=== PATIENT | female | born 1950 | race Caucasian/White ===

== ENCOUNTER 2019-12-09 14:41 | Outpatient (CLI) | payer MEDICARE, SELFPAY ==
--- NOTE | ~2019-12-09 | US_ITS ---
EXAMINATION: US art doppler w press LE BI DATE: 12/09/2019 15:28 CDT INDICATION: Peripheral vascular disease. Pain in the feet. TECHNIQUE: Segmental pressures and plethysmographic and Doppler waveforms of the brachial and lower e xtremity arteries were obtained. COMPARISON: None. FINDINGS: Right and left brachial artery pressures of 124 mm Hg and 116 mm Hg, respectively, are concordant (no rmal difference <= 30 mmHg). The right high-thigh pressure index is 1.19 (normal > 1.2). The right ankle-brachial index (MAURICE) is 1 .05 (normal >= 0.9-1.0). The right great toe-brachial index (TBI) is 0.88 (normal >= 0.60). The right lower extremity segmental pressure gradients are normal (normal gradients <= 20-30 mmHg between raeann cent levels on the same leg or the same levels on the two legs). Arterial Doppler waveforms are bipha sic . The left high-thigh pressure index is 1.06. The left MAURICE is 1.1. The left TBI is 1.02. The left lower extremity segmental pressure gradients are normal. Arterial Doppler waveforms are biphasic. IMPRESSION: 1. Normal bilateral ankle and toe brachial indices. Reviewed, dictated and finalized at location A.
== END 2019-12-09 14:42 | disposition home or self-care (01) ==
LOC: ANHIMG 14:46
PROVIDERS: PCP Internal Medicine
DX: I73.9 Peripheral vascular disease, unspecified (principal)
CPT/HCPCS: 93923

== ENCOUNTER → 2020-10-17 16:03 | Outpatient (CLI) | payer MEDICARE, SELFPAY ==
--- NOTE | ~2020-10-17 | MM_ITS ---
EXAMINATION: MM screening jose m BI w hilda HISTORY: Screening mammogram TECHNIQUE: Craniocaudal and mediolateral oblique 3-D tomosynthesis images were obtained and synthetic 2-D images were generated. CAD analysis was submitted and interpreted. COMPARISON: 05/18/2019 bilateral diagnostic digital mammogram and Limited bilateral breast ultrasound 05/12/2019, 02/19/2017, 04/13/2015 bilateral digital screening mammogram examinations BREAST PARENCHYMAL COMPOSITION: There are scattered areas of fibroglandular density. FINDINGS: Scattered bilateral benign calcifications. There is no evidence of suspicious mass, calcifi cation, or architectural distortion to suggest malignancy in either breast. There has been no suspici ous interval change. IMPRESSION: 1. No mammographic evidence of malignancy. 2. Recommend routine screening mammography in one year. BI-RADS Category 2: Benign finding(s). Reviewed, dictated and finalized at location A. O CLEANER
== END ==
PROVIDERS: PCP Internal Medicine; Visit Provider Nurse Practitioner
DX: Z12.31 Encounter for screening mammogram for malignant neoplasm of breast (principal)
CPT/HCPCS: 77063; 77067

== ENCOUNTER 2021-02-28 13:12 | Emergency (ER) | payer MEDICARE, SELFPAY ==
--- NOTE | ~2021-02-28 | XR_ITS ---
EXAMINATION: XR ankle LT min 3V EXAM DATE: 02/28/2021 14:02 INDICATION: Initial encounter following injury, with pain of the left fibula. Fracture. TECHNIQUE: Left ankle frontal, lateral and oblique projections obtained and reviewed. Correlation is made to other x-rays same date. FINDINGS: The left ankle mortise appears intact. There are no acute fractures or dislocations ident ified. There is no subcutaneous gas. The soft tissue is unremarkable. There are no radiopaque for eign bodies. IMPRESSION: 1. XR ankle LT min 3V exam without acute osseous findings. Reviewed, dictated and finalized at location B.
--- NOTE | ~2021-02-28 | XR_ITS ---
EXAMINATION: XR foot LT min 3V EXAM DATE: 02/28/2021 13:41 INDICATION: Fall left lower leg and dorsal foot pain. Initial encounter. TECHNIQUE: Left foot dorsoplantar, lateral and oblique projections obtained and reviewed. There is n o prior study for comparison. FINDINGS: Left metatarsal bones unremarkable. There is severe hallux valgus and mild to moderate 1 st MTP primary osteoarthritis. Possible prior bunionectomy. There are no acute fractures identified. Small posterior calcaneal spur. No radiopaque foreign bodies identified. IMPRESSION: No acute left foot findings. Reviewed, dictated and finalized at location B.
--- NOTE | ~2021-02-28 | XR_ITS ---
EXAMINATION: XR tibia fibula LT 2V EXAM DATE: 02/28/2021 13:41 INDICATION: Fall/ lower left leg and dorsal foot pain. Initial encounter. TECHNIQUE: Left tibia/fibula frontal and lateral projections obtained and reviewed. There is no prio r study for comparison. FINDINGS: Acute closed posttraumatic fracture of the left fibular proximal metaphysis with about 3 mm posterior lateral displacement. No fracture identified of the fibula distally, but recommend left an kle exam. The left tibia appears intact. Evidence of moderate knee primary osteoarthritis. IMPRESSION: Acute left fibular shaft fracture proximally; recommend ankle exam. Reviewed, dictated and finalized at location B. IMPRESSION: Acute left fibular shaft fracture proximally; recommend ankle exam .
[2021-02-28 13:23] VITALS: BP 128/66; PULSE 91; RESP 16; TEMP 36.3; O2SAT 100
--- NOTE | 2021-02-28 13:23 | ED.GENADULT ---
HPI - General Adult General Chief complaint: Extremity Injury, Lower Stated complaint: FALL Time Seen by Provider: 02/28/21 13:23 Source: patient and RN notes reviewed Mode of arrival: wheelchair Limitations: no limitations History of Present Illness HPI narrative: 70-year-old female presents with complaints of left leg pain and swelling for the past 2 days. ?Arely reports getting up from the chair and falling after leg gave out. ?Heat and Tylenol once on 02/27/2021 approximately 14:00 without relief. ?Diffuse radiation of pain. ?No numbness or tingling or bleeding. ?Swelling. No loss of mobility. ?Exacerbating factor consists of bearing weight to the leg. ?Denies hitting head, loss of consciousness, seizure activity, and syncopal activity. No chest pain or dyspnea. ?Remains active. ?The patient reports she has not been diagnosed with COVID-19. ?The patient reports she received 2 Pfizer COVID-19 vaccines. ?The patient reports she is not waiting for the results of a COVID-19 lab test. ?The patient reports she does not have fever, chills, weakness, or fatigue. The patient reports she does not have a new or worsening cough. ?The patient reports she does not have any rhinorrhea, congestion, sore throat, nausea, vomiting, abdominal pain, and diarrhea. ?Tolerating po intake well. ?Denies recent traveling. ?Denies concerns for COVID-19 or exposures. At this time, the patient is not suspected of having COVID-19. Some parts of this dictation were generated by voice recognition software and may contain typographical and/or grammatical inaccuracies. Related Data Allergies Allergy/AdvReac Type Severity Reaction Status Date / Time codeine Allergy Unknown Verified 03/02/21 11:43 Review of Systems Review of Systems: Narrative: CONSTITUTIONAL: Denies fever, chills, sweats. EYES: Denies visual changes, redness, discharge. ENT: Denies rhinorrhea, congestion, sore throat, otalgia. CARDIOVASCULAR: Denies chest pain, palpitations, edema. RESPIRATORY: Denies dyspnea, wheezing, cough. GASTROINTESTINAL: Denies abdominal pain, nausea, vomiting, diarrhea. SKIN: Denies rash or itching. MUSCULOSKELETAL: Denies acute back pain or myalgia. Complains of left leg pain and swelling. NEUROLOGIC: Denies numbness or focal weakness. PSYCHIATRIC: Denies anxiety or depression. All other systems reviewed & are unremarkable except as noted in HPI and below. [facility] Past Medical History Medical History (Updated 03/02/21 @ 13:21 by Radha Feng RT(R)) Abnormal mammogram Acid reflux Bilateral cataracts Chicken pox CKD (chronic kidney disease) Claustrophobia HLD (hyperlipidemia) Hypothyroidism Insomnia Measles Osteoarthritis Sarcoidosis Tear of left rotator cuff Type 2 diabetes mellitus with diabetic polyneuropathy, without long-term current use of insulin Uterine cancer Surgical History Surgical History (Updated 03/02/21 @ 13:21 by Radha Feng, RT(R)) History of back surgery C-spine surgery, T12-L5 fusion History of foot surgery History of hysterectomy Family History Family History Mother Patient's mother is Father Family history of emphysema Family history of coronary artery disease Social History Social History (Updated 02/28/21 @ 13:38 by AGUEDA Finn) Smoking status: Former smoker Tobacco type: cigarettes Second hand tobacco smoke exposure: No Smoking end date: 09/29/78 Alcohol intake: current Substance use: never Substance use type: does not use Additional living arrangements comments: spouse Gender identity (if verbalized by the patient): Female Comments At time of signature, agree with the nurse past medical, surgical, social, and family history. ?There is no relevant family history pertinent to the presenting complaint. Exam Narrative: Exam Narrative: GENERAL: This is a well-nourished, well-developed patient,
== END 2021-02-28 14:42 | disposition home or self-care (01) ==
PROVIDERS: Emergency Provider Nurse Practitioner Family; PCP Internal Medicine
DX: S82.102A Unspecified fracture of upper end of left tibia, initial encounter for closed fracture (principal); W19.XXXA Unspecified fall, initial encounter; Z87.891 Personal history of nicotine dependence; K21.9 Gastro-esophageal reflux disease without esophagitis; E78.5 Hyperlipidemia, unspecified; E03.9 Hypothyroidism, unspecified; M19.90 Unspecified osteoarthritis, unspecified site; E11.42 Type 2 diabetes mellitus with diabetic polyneuropathy; E11.22 Type 2 diabetes mellitus with diabetic chronic kidney disease; N18.9 Chronic kidney disease, unspecified; Z79.84 Long term (current) use of oral hypoglycemic drugs
CPT/HCPCS: 29125; 73590; 73610; 73630; 99214; G0463

== ENCOUNTER 2021-12-24 12:05 | Outpatient (CLI) | payer MEDICARE, SELFPAY ==
--- NOTE | 2021-12-24 12:30 | ECHO_ITS ---
Patient Info Name: Arely Welch Age: 71 years : 1950 Gender: Female Ht: 64 in Wt: 178 lbs BSA: 1.94 m2 HR: 78 bpm BP: 152 / 80 mmHg Technical Quality: Good Exam Date: 12/24/2021 1:14 PM Exam Location: [facility] Patient Status: Outpatient Admit Date: 12/24/2021 Staff Ordering Physician: Stephanie Akins NP Padding Gluer: Oma Mckenzie RDCS Attending Provider: Stephanie Akins NP Referring Physician: Tashi ALBERTS; Exam Type: CA echo doppler color flow Study Info Indications - localized edema Complete two-dimensional, color flow and Doppler transthoracic echocardiogram is performed. Summary 1. Complete two-dimensional, color flow and Doppler transthoracic echocardiogram is performed. 2. Left ventricular chamber dimension is normal. 3. Left ventricular systolic function is normal, estimated at 60-65%. 4. The left ventricular diastolic function is grade I diastolic dysfunction. 5. E/e' 15 is elevated. 6. Mild right ventricular hypertrophy. 7. The mitral valve has moderately calcified annulus. 8. There is mild mitral valve regurgitation. 9. No pulmonary hypertension, estimated pulmonary arterial systolic pressure is 35 mmHg. Left Ventricle E/e' 15 is elevated. Left ventricular chamber dimension is normal. Left ventricular systolic function is normal, estimated at 60-65%. The left ventricular diastolic function is grade I diastolic dysfunction. Right Ventricle Mild right ventricular hypertrophy. Right ventricular chamber dimension is normal. Right ventricular systolic function is normal. Left Atria Left atrial chamber dimension is normal. Right Atria Right atrial chamber dimension is normal. Aortic Valve The aortic valve is trileaflet. There is no aortic valve stenosis. There is no aortic valve regurgitation. Pulmonic Valve There is no pulmonic regurgitation. Mitral Valve The mitral valve has moderately calcified annulus. There is no mitral valve stenosis. There is mild mitral valve regurgitation. Tricuspid Valve There is no tricuspid valve regurgitation. No pulmonary hypertension, estimated pulmonary arterial systolic pressure is 35 mmHg. Pericardium/Pleural There is no pericardial effusion. Inferior Vena Cava Normal inferior vena cava with >50% collapse upon inspiration consistent with normal right atrial pressure, 5 mmHg. Aorta The aortic root size at the sinus of Valsalva is normal. Left Ventricular Outflow Tract Name Value Normal LVOT 2D LVOT Diameter 2.0 cm LVOT Doppler LVOT Peak Gradient 5 mmHg LVOT Mean Gradient 4 mmHg LVOT VTI 25 cm LVOT VTI/AV VTI Ratio 0.8 LVOT Stroke Volume 82 ml LVOT CO 17.9 l/min LVOT CI 9.2 l/min/m2 Mitral Valve Name Value Normal
== END 2021-12-24 12:06 | disposition home or self-care (01) ==
PROVIDERS: PCP Internal Medicine; Visit Provider Nurse Practitioner
DX: R60.0 Localized edema (principal)
CPT/HCPCS: 93306

== ENCOUNTER 2022-02-05 16:50 | Outpatient (CLI) | payer MEDICARE, SELFPAY ==
[2022-02-05 17:43] LABS: NT Pro B Type Natriuretic Pept 107 pg/mL (5-100)
== END 2022-02-05 16:51 | disposition home or self-care (01) ==
LOC: ANHLAB 16:51
PROVIDERS: PCP Internal Medicine; Visit Provider Internal Medicine Cardiovascular Disease
DX: R60.0 Localized edema (principal); R06.00 Dyspnea, unspecified
CPT/HCPCS: 36415; 83880

== ENCOUNTER 2022-03-01 16:57 | Emergency (ER) | payer MEDICARE, SELFPAY ==
[2022-03-01 17:09] VITALS: BP 146/67; PULSE 92; RESP 16; TEMP 35.7; O2SAT 97
--- NOTE | 2022-03-01 17:22 | ED.SKABFB ---
HPI - Skin/Abscess/Foreign Bdy General Chief complaint: Skin/Abscess/Foreign Body Stated complaint: left leg infection Time Seen by Provider: 03/01/22 17:22 Source: patient Mode of arrival: ambulatory Limitations: no limitations History of Present Illness HPI narrative: 71 yo F presents with c/o redness, swelling to L lower leg for 3 to 4 days. Has had abrasion to L leg for 2 wks. Fell backwards 2 wks ago due to losing balance and hit leg on storm door. Was able to get up on her own. Did not hit head. No LOC. No pain from fall. Pt is off balance due to cervical surgeries. Uses a cane. Noticed redness during physical therapy appt. afebrile. All systems reviewed and negative except as noted above. Related Data Allergies Allergy/AdvReac Type Severity Reaction Status Date / Time codeine Allergy Unknown Verified 03/01/22 17:14 tramadol AdvReac Intermediate Nausea Unverified 03/01/22 17:14 Review of Systems Review of Systems: CONSTITUTIONAL: Denies fever, chills, or sweats. EYES: Denies visual changes, redness, or discharge. ENT: Denies rhinorrhea, congestion, sore throat, or otalgia. CARDIOVASCULAR: Denies chest pain, palpitations, or edema. RESPIRATORY: Denies cough or dyspnea. GASTROINTESTINAL: Denies abdominal pain, nausea, vomiting, or diarrhea. GENITOURINARY: Denies dysuria or hematuria. SKIN: Denies rash or itching. Reports redness, swelling, tenderness to left lower extremity surrounding a skin abrasion. MUSCULOSKELETAL: Denies back pain, joint pain, or myalgia. NEUROLOGIC: Denies headache, numbness, or weakness. PSYCHIATRIC: Denies anxiety or depression. All other systems reviewed are negative, except as documented in HPI. [facility] Past Medical History Medical History (Updated 03/01/22 @ 17:33 by Sherry Roland NP) Abnormal mammogram Acid reflux Bilateral cataracts Broken leg Left fibula Calcification of mitral valve Chicken pox CKD (chronic kidney disease) Claustrophobia HLD (hyperlipidemia) Hypothyroidism Insomnia Measles Osteoarthritis Sarcoidosis Tear of left rotator cuff Type 2 diabetes mellitus with diabetic polyneuropathy, without long-term current use of insulin Uterine cancer Surgical History Surgical History History of back surgery C-spine surgery, T12-L5 fusion History of cervical spinal surgery History of foot surgery History of hysterectomy Family History Family History Mother Patient's mother is Father Family history of emphysema Family history of coronary artery disease Social History Social History Smoking status: Never smoker Tobacco type: cigarettes Second hand tobacco smoke exposure: No Smoking end date: 09/29/78 Alcohol intake: current Alcohol use details: occasional Substance use: never Substance use type: does not use Additional living arrangements comments: spouse Gender identity (if verbalized by the patient): Female Sexual Orientation (if Verbalized by the Patient): Straight or Heterosexual Comments At time of signature, agree with nursing past medical, surgical, social and family history. There is no relevant family history pertinent to the presenting complaint. Exam Narrative: GENERAL: This is a well-nourished, well-developed patient, in no apparent distress. HEAD: normocephalic, atraumatic. EYES: PERRL. Sclera clear/white. Vision is grossly intact. EARS: External ears normal NOSE: External nose normal NECK: Neck supple, non-tender without lymphadenopathy, masses or thyromegaly. CARDIOVASCULAR: Regular rate and rhythm without murmurs, gallops, or rubs. RESPIRATORY: Clear to auscultation. Breath sounds equal bilaterally. No wheezes, rales, or rhonchi. SKIN: warm, Dry,with no suspicious lesions or rash, good texture and turgor. Small abrasion to anterior as
== END 2022-03-01 17:37 | disposition home or self-care (01) ==
PROVIDERS: Emergency Provider Nurse Practitioner Family; PCP Internal Medicine
DX: L03.116 Cellulitis of left lower limb (principal); Z87.891 Personal history of nicotine dependence; K21.9 Gastro-esophageal reflux disease without esophagitis; H26.9 Unspecified cataract; M19.90 Unspecified osteoarthritis, unspecified site; D86.9 Sarcoidosis, unspecified; E11.42 Type 2 diabetes mellitus with diabetic polyneuropathy; Z85.42 Personal history of malignant neoplasm of other parts of uterus; E11.22 Type 2 diabetes mellitus with diabetic chronic kidney disease; N18.9 Chronic kidney disease, unspecified
CPT/HCPCS: 99213; G0463

== ENCOUNTER 2022-03-08 14:48 | Outpatient (CLI) | payer MEDICARE, SELFPAY ==
--- NOTE | ~2022-03-08 | XR_ITS ---
EXAMINATION: XR tibia fibula LT 2V INDICATION: Cellulitis of the leg TECHNIQUE: Two views of the left tibia and fibula are obtained. COMPARISON: 02/28/2021 FINDINGS: There is a healed fracture proximal fibula. Moderate osteoarthritis is noted at the knee. T he soft tissues are unremarkable. There is no acute fracture. IMPRESSION: 1. No acute findings. Reviewed, dictated and finalized at location A. IMPRESSION: 1. No acute findings.
== END 2022-03-08 14:49 | disposition home or self-care (01) ==
LOC: ANHIMG 14:52
PROVIDERS: PCP Internal Medicine; Visit Provider Clinical Nurse Specialist
DX: L03.116 Cellulitis of left lower limb (principal)
CPT/HCPCS: 73590

== ENCOUNTER → 2023-05-03 09:12 | Outpatient (CLI) | payer MEDICARE, SELFPAY ==
--- NOTE | ~2023-05-03 | MM_ITS ---
EXAMINATION: MM screening [facility] BI w hilda HISTORY: Screening mammogram TECHNIQUE: Craniocaudal and mediolateral oblique 3-D tomosynthesis images were obtained and synthetic 2-D images were generated. CAD analysis was submitted and interpreted. COMPARISON: 10/17/2020, 05/18/2019, 05/12/2019 BREAST PARENCHYMAL COMPOSITION: There are scattered areas of fibroglandular density. FINDINGS: No suspicious mass, calcification, or architectural distortion are identified in either tom ast to suggest malignancy. There has been no suspicious interval change. IMPRESSION: 1. No mammographic evidence of malignancy. 2. Recommend routine screening mammography in one year. BI-RADS Category 1: Negative Reviewed, dictated and finalized at location A.
== END ==
PROVIDERS: PCP Internal Medicine
DX: Z12.31 Encounter for screening mammogram for malignant neoplasm of breast (principal)
CPT/HCPCS: 77063; 77067

== ENCOUNTER 2023-08-06 02:31 | Day surgery (SDC) | payer MEDICARE, SELFPAY ==
[2023-07-28 10:42] VITALS: BMI 29.2
--- NOTE | 2023-08-04 09:42 | SUR.PREOP ---
Patient called regarding upcoming procedure. Reviewed preop instructions, appointment times, and procedure prep.
[2023-08-06 07:48] LABS: Glucose Point of Care 150 mg/dl (65-105)
[2023-08-06 07:49] VITALS: BP 133/58; PULSE 84; RESP 18; TEMP 36.1; O2SAT 96
[2023-08-06] MEDS: LACTATED RINGERS 1,000 ML 150 ML IV CONT (07:53)
--- NOTE | 2023-08-06 08:47 | WPDANESEPPF ---
Anes - Initial Pre Proc Eval Procedure: Operation Date: 08/06/23 09:15 Proposed Procedures p Screening Colonoscopy - Malachi Valdez MD Date/Time: 08/06/23 08:47 Surgeon: Malachi Valdez MD Pre Op Diagnosis: neoplasm screening Patient Data Age: 73 Gender: F Height: 1.63 m Weight: 76.7 kg Last Vital Signs Temp 96.9 F L 08/06/23 07:49 Pulse 84 08/06/23 07:49 Resp 18 08/06/23 07:49 BP 133/58 L 08/06/23 07:49 Pulse Ox 96 08/06/23 07:49 O2 Del Method Room Air 08/06/23 07:49 Allergies Allergy/AdvReac Type Severity Reaction Status Date / Time codeine Allergy Dry Heaves Verified 08/06/23 07:48 tramadol AdvReac Intermediate Nausea Verified 08/06/23 07:48 Home Medications Medication Instructions Recorded Confirmed Type lancets (Accu-Chek Softclix #102 ea 01/24/22 07/28/23 Rx Lancets) fluticasone propionate 50 See Rx Instructions .Route 03/11/22 08/06/23 Rx mcg/actuation nasal .COMPLEX #48 grams spray,suspension blood sugar diagnostic (Accu-Chek #100 ea 06/14/22 07/28/23 Rx SmartView Test Strips) doxepin 10 mg capsule See Rx Instructions .Route 12/12/22 08/06/23 Rx .COMPLEX #180 caps metformin 500 mg tablet See Rx Instructions .Route 12/12/22 08/06/23 Rx .COMPLEX #360 tabs allopurinol 300 mg tablet See Rx Instructions .Route 01/30/23 08/06/23 Rx .COMPLEX #90 tabs furosemide 40 mg tablet See Rx Instructions .Route 01/30/23 08/06/23 Rx .COMPLEX #90 tabs simvastatin 20 mg tablet See Rx Instructions .Route 03/10/23 08/06/23 Rx .COMPLEX #90 tabs levothyroxine 75 mcg tablet See Rx Instructions .Route 04/21/23 08/06/23 Rx .COMPLEX #90 tabs gabapentin 300 mg capsule See Rx Instructions .Route 06/19/23 08/06/23 Rx .COMPLEX #270 caps Laboratory Tests 08/06/23 07:45 POC Capillary Glucose 150 H mg/dl (65-105) Patient hx anesthesia problems: none Family hx anesthesia problems: none Results Review: All pre-operative results and documents have been reviewed as part of the pre-operative evaluation. [facility] Past Medical History Medical History Abnormal mammogram Acid reflux Bilateral cataracts Broken leg Left fibula Calcification of mitral valve Chicken pox CKD (chronic kidney disease) Claustrophobia HLD (hyperlipidemia) Hypothyroidism Insomnia Measles Osteoarthritis Sarcoidosis Tear of left rotator cuff Type 2 diabetes mellitus with diabetic polyneuropathy, without long-term current use of insulin Uterine cancer Surgical History Surgical History History of back surgery C-spine surgery, T12-L5 fusion History of cervical spinal surgery History of foot surgery History of hysterectomy Family History Family History Mother Patient's mother is Father Family history of emphysema Family history of coronary artery disease Social History Social History Years smoked: 30 Smoking status: Former smoker Tobacco type: cigarettes Second hand tobacco smoke exposure: No Smoking end date: 09/29/78 Alcohol intake: current Alcohol use details: occasional Substance use: never Substance use type: does not use Lack of Transportation: No Lack of Food: Never True Current Housing: I Have Housing Concerned About Future Housing: No Difficulty Paying Gas/Electric Bills: No Difficulty Paying for Meds: No Currently Unemployed: No Education: High School Diploma/GED Difficulty w/ Childcare or Family Care: No Living arrangements: alone Additional living arrangements comments: spouse Occupation/Education: retired Gender identity (if verbalized by the patient): Female Sexual Orientation (if Verbalized by the Patient): Straight or Heterosexual
--- NOTE | 2023-08-06 09:06 | PM.HPGS ---
History of Present Illness History of Present Illness Consent: Risks, benefits, and alternatives have been discussed and questions answered. Patient agrees to proceed with procedure. Chief complaint: neoplasm screening Narrative: Arely Welch is a 73 year old female with colon polyp 3 years ago Review of Systems Constitutional: Constitutional: Denies headache(s) and Denies weakness Eyes: Eyes: Denies blurry vision ENT: Reports Normal hearing present, Denies headache(s) and Denies neck pain Cardiovascular: Cardiovascular: Denies chest pain and Denies dyspnea Respiratory: Respiratory: Denies dyspnea Gastrointestinal: Gastrointestinal: Reports no additional gastrointestinal complaints Genitourinary: Genitourinary: Denies dysuria Musculoskeletal: Musculoskeletal: Denies neck pain Integumentary/Breasts: Skin/Breast: Denies dry skin Neurologic: Reports Normal hearing present, Denies headache(s) and Denies weakness Psychiatric: Psychiatric: Denies anxiety Endocrine: Endocrine: Denies change in body appearance Hematologic/Lymphatic: Hematologic/Lymphatic: Denies easy bleeding Allergic/Immunologic: Allergic/Immunologic: Denies urticaria [facility] Past Medical History Medical History (Updated 08/06/23 @ 09:06 by Malachi Valdez MD) Abnormal mammogram Acid reflux Bilateral cataracts Broken leg Left fibula Calcification of mitral valve Chicken pox CKD (chronic kidney disease) Claustrophobia Colon polyp HLD (hyperlipidemia) Hypothyroidism Insomnia Measles Osteoarthritis Sarcoidosis Tear of left rotator cuff Type 2 diabetes mellitus with diabetic polyneuropathy, without long-term current use of insulin Uterine cancer Surgical History Surgical History History of back surgery C-spine surgery, T12-L5 fusion History of cervical spinal surgery History of foot surgery History of hysterectomy Family History Family History Mother Patient's mother is Father Family history of emphysema Family history of coronary artery disease Social History Social History Years smoked: 30 Smoking status: Former smoker Tobacco type: cigarettes Second hand tobacco smoke exposure: No Smoking end date: 09/29/78 Alcohol intake: current Alcohol use details: occasional Substance use: never Substance use type: does not use Lack of Transportation: No Lack of Food: Never True Current Housing: I Have Housing Concerned About Future Housing: No Difficulty Paying Gas/Electric Bills: No Difficulty Paying for Meds: No Currently Unemployed: No Education: High School Diploma/GED Difficulty w/ Childcare or Family Care: No Living arrangements: alone Additional living arrangements comments: spouse Occupation/Education: retired Gender identity (if verbalized by the patient): Female Sexual Orientation (if Verbalized by the Patient): Straight or Heterosexual Meds Home Medications and Allergies Home Medications Medication Instructions Recorded Confirmed Type lancets (Accu-Chek Softclix #102 ea 01/24/22 07/28/23 Rx Lancets) fluticasone propionate 50 See Rx Instructions .Route 03/11/22 08/06/23 Rx mcg/actuation nasal .COMPLEX #48 grams spray,suspension blood sugar diagnostic (Accu-Chek #100 ea 06/14/22 07/28/23 Rx SmartView Test Strips) doxepin 10 mg capsule See Rx Instructions .Route 12/12/22 08/06/23 Rx .COMPLEX #180 caps metformin 500 mg tablet See Rx Instructions .Route 12/12/22 08/06/23 Rx .COMPLEX #360 tabs allopurinol 300 mg tablet See Rx Instructions .Route 01/30/23 08/06/23 Rx .COMPLEX #90 tabs furosemide 40 mg tablet See Rx Instructions .Route 01/30/23 08/06/23 Rx .COMPLEX #90 tabs simvastatin 20 mg tablet See Rx Instructions .Route 03/10/23 08/06/23 Rx
[2023-08-06 09:35] VITALS: BP 114/62; PULSE 66; RESP 21; O2SAT 96
[2023-08-06 09:44] VITALS: BP 125/67; PULSE 66; RESP 21; O2SAT 96
[2023-08-06 09:54] VITALS: BP 117/66; PULSE 66; RESP 24; O2SAT 98
== END 2023-08-06 10:00 | disposition home or self-care (01) ==
PROVIDERS: PCP Internal Medicine; Visit Provider Internal Medicine Gastroenterology
PROC: 0DJD8ZZ Inspection of Lower Intestinal Tract, Via Natural or Artificial Opening Endoscopic (ICD-10-PCS; CPT 45378; principal; 2023-08-06 09:15)
DX: Z12.11 Encounter for screening for malignant neoplasm of colon (principal); D12.3 Benign neoplasm of transverse colon; K63.5 Polyp of colon; K57.30 Diverticulosis of large intestine without perforation or abscess without bleeding; K21.9 Gastro-esophageal reflux disease without esophagitis; E11.22 Type 2 diabetes mellitus with diabetic chronic kidney disease; E11.42 Type 2 diabetes mellitus with diabetic polyneuropathy; N18.9 Chronic kidney disease, unspecified; E78.5 Hyperlipidemia, unspecified; E03.9 Hypothyroidism, unspecified; Z85.42 Personal history of malignant neoplasm of other parts of uterus; Z79.84 Long term (current) use of oral hypoglycemic drugs; Z87.891 Personal history of nicotine dependence
CPT/HCPCS: 45380; 45385; 82948; 88305; J2704; J7120

== ENCOUNTER 2024-07-30 17:27 | Emergency (ER) | payer MEDICARE, SELFPAY ==
[2024-07-30 17:37] VITALS: BP 137/61; PULSE 79; RESP 16; TEMP 36; O2SAT 99
--- NOTE | 2024-07-30 17:40 | ED_ITS ---
HPI - URI/Sore Throat General Chief Complaint: Upper Respiratory Infection Stated Complaint: Sore Throat/Cough Time Seen by Provider: 07/30/24 17:40 Source: patient, RN notes reviewed and old records reviewed Mode of arrival: ambulatory Limitations: no limitations History of Present Illness HPI Narrative: 74-year-old female to Express Care with complaint of cough, sore throat, hoarseness, nasal drainage, postnasal drainage since Friday evening. Patient denies fever, shortness of breath, difficulty swallowing, known sick contacts. Patient states that she is currently on amoxicillin for a dental infection. Patient states she spoke with a friend today who advised her to be seen due to mycoplasma pneumonia being common in our area. Patient able to tolerate fluids by mouth. Patient resting comfortably in exam room in no acute distress. Respirations even and nonlabored. Patient able to speak in complete sentences without difficulty. Related Data Allergies Allergy/AdvReac Type Severity Reaction Status Date / Time codeine Allergy Dry Heaves Verified 07/30/24 17:43 tramadol AdvReac Intermediate Nausea Verified 07/30/24 17:43 Review of Systems Review of Systems: All systems reviewed & are unremarkable except as noted in HPI and below Constitutional: Constitutional: Reports no additional constitutional complaints Eyes: Eyes: Reports no additional eye complaints ENT: Reports as per HPI, Reports hoarseness, Reports nasal discharge, Reports post nasal drip and Reports sore throat Cardiovascular: Cardiovascular: Reports no additional cardiovascular complaints, Denies chest pain and Denies dyspnea Respiratory: Respiratory: Reports as per HPI, Reports cough and Denies dyspnea Musculoskeletal: Musculoskeletal: Reports no additional musculoskeletal com plaints Neurologic: Reports system reviewed and no additional complaints, except as documented Psychiatric: Psychiatric: Reports no additional psychiatric complaints PENDING SALE TO [facility] Past Medical History Medical History Abnormal mammogram Acid reflux Bilateral cataracts Broken leg Left fibula Calcification of mitral valve Chicken pox CKD (chronic kidney disease) Claustrophobia Colon polyp HLD (hyperlipidemia) Hypothyroidism Insomnia Measles Osteoarthritis Sarcoidosis Tear of left rotator cuff Type 2 diabetes mellitus with diabetic polyneuropathy, without long-term current use of insulin Uterine cancer Surgical History Surgical History History of back surgery C-spine surgery, T12-L5 fusion History of cervical spinal surgery History of foot surgery History of hysterectomy Family History Family History Mother Patient's mother is Father Family history of emphysema Family history of coronary artery disease Social History Social History Years smoked: 30 Smoking status: Former smoker Tobacco type: cigarettes Second hand tobacco smoke exposure: No Smoking end date: 09/29/78 Alcohol intake: current Alcohol use details: occasional Substance use: never Substance use type: does not use Lack of Transportation: No Lack of Food: Never True Current Housing: I Have Housing Concerned About Future Housing: No Difficulty Paying Gas/Electric Bills: No Difficulty Paying for Meds: No Currently Unemployed: No Education: High School Diploma/GED Difficulty w/ Childcare or Family Care: No Living arrangements: alone Additional living arrangements comments: spouse Occupation/Education: retired Gender identity (if verbalized by the patient): Female Sexual Orientation (if Verbalized by the Patient): Straight or Heterosexual Comments At the time of my signature, I reviewed and agree with the nursing past medical, surgical, social, and family history. There is no relevant family history pertinent to the patient complaint. Exam Const: General: cooperative, healthy appearing, comfortable, no acute distress, alert and well nourished Nutritional Appearance: well nourished Orientation/consciousness: patient oriented x3 Limitations: no limitations HENMT: Head: normal to inspection Ears: external ears normal Face/Nose/Sinus: Normal external nose present, Abnormal mucous membranes and turbinates present boggy and erythematous, Nasal discharge present ( purulent), normal facial exam, No erythema and No edema Face and sinus: normal facial exam, no erythema and no edema Mouth: Yes Normal oral and palatal mucosa present Throat: postnasal drainage ( Purulent) Eyes: General: appearance normal, both eyes and all related structures Neck: Neck: normal visual inspection, full ROM and no meningeal signs Chest: Chest palpation & inspection: normal inspection of the chest Resp: Effort & Inspection: normal respiratory effort and able to speak in complete sentences Auscultation: clear to auscultation bilaterally Cardio: Jugular venous distension: no JVD Rate: regular rate Rhythm: regular rhythm Back/Spine/Pelvis: Cervical Spine: cervical ROM normal Skin: General skin exam: normal color, no rashes or lesions noted and turgor normal Neuro: General: patient oriented x3, gait normal, moves all extremities and no meningeal signs Speech: normal speech Gait exam (Neuro): Normal gait present Extrem: General: normal to inspection, full ROM and capillary refill normal Psych: Appearance: grossly normal and well kempt Course Course Emergency Course: Some parts of this dictation were generated by voice recognition software and may contain typographical and/or grammatical inaccuracies. Level of Care: Express Care Visit Vital Signs Vital signs: Vital Signs Temperature 36.0 C L 07/30/24 17:37 Pulse Rate 79 07/30/24 17:37 Respiratory Rate 16 07/30/24 17:37 Blood Pressure 137/61 07/30/24 17:37 Pulse Oximetry 99 07/30/24 17:37 Temperature 36.5 C 07/30/24 18:06 Pulse Rate 79 07/30/24 17:37 Respiratory Rate 16 07/30/24 17:37 Blood Pressure 137/61 07/30/24 17:37 Pulse Oximetry 99 07/30/24 17:37 reviewed MDM - URI/Sore Throat MDM Narrative Medical decision making narrative: 74-year-old female to Express Care with complaint of cough, sore throat, hoarseness, nasal drainage, postnasal drainage since Friday evening. Patient denies fever, shortness of breath, difficulty swallowing, known sick contacts. Patient states that she is currently on amoxicillin for a dental infection. Patient states she spoke with a friend today who advised her to be seen due to mycoplasma pneumonia being common in our area. Patient able to tolerate fluids by mouth. Patient resting comfortably in exam room in no acute distress. Respirations even and nonlabored. Patient able to speak in complete sentences without difficulty. on exam, bilateral nares erythematous, boggy with purulent drainage. Posterior oropharynx erythematous with purulent postnasal discharge. Exam otherwise unremarkable. Findings consistent with bacterial infection. Patient is sitting comfortably in exam room nontoxic in appearance. Patient appropriate for outpatient treatment and follow-up. Discharge instructions reviewed with patient, as well as provided in writing per nursing staff. The instructions also include specific and strict return/GO TO THE ER as well as f/u information. All questions have been answered, and the patient deny any further questions with discharge and discharge plan. Some parts of this dictation were generated by voice recognition software and may contain typographical and/or grammatical inaccuracies. Differential Diagnosis Differential diagnosis: Likely upper respiratory infection, croup, otitis media, sinusitis, viral infection, bronchitis, influenza and pharyngitis Discharge Plan Discharge Clinical Impression: Cough Patient Disposition: Home, Self-Care Condition: Stable Instructions: Acute Cough (ED) Additional Instructions: -Alternate Tylenol and Motrin per package directions for fever or pain. -Antihistamine medication such as Benadryl at night and Zyrtec/Claritin/Amina during the day can help improve symptoms. -Use Flonase twice a day for 5 days then daily to help reduce the inflammation and dry up your sinuses. -You can also use Sudafed or Mucinex. Be sure to drink plenty of water with these medications at least 8 ounces with every dose and it is important to drink 8 to 10 glasses of water per day. Water is a natural decongestant -Eat and drink things that are easy to swallow, like tea or soup, or popsicles. -Oral rinses such as: Salt water gargles and/or may use topical anesthetic (eg. Chloraseptic spray) or lozenges to relieve dryness or throat pain). -Frequent hand washing or hand icebox man is one of the best ways to prevent spread of infection. -Using a vaporizer or humidifier at night will also help thin secretions and help with coughing up phlegm. -Follow up with primary care provider in 2-3 days if condition is not improving; or seek ER visit if you have trouble breathing, cannot drink enough fluids, have muffled voice, difficulty opening your mouth, or severe swelling. Prescriptions: New amoxicillin-pot clavulanate 875-125 mg tablet 1 tablet PO Q12H 7 Days Qty: 14 0RF No Action (DME) lancets [Accu-Chek Softclix Lancets] Misc See Rx Instructions .ROUTE .MEDSUPPLY Qty: 102 3RF Rx Instructions: use to cehck blood sugar once a day fluticasone propionate 50 mcg/actuation spray,suspension See Rx Instructions .ROUTE .COMPLEX Qty: 48 0RF Dose Instruction: SHAKE LIQUID AND USE 1 SPRAY IN EACH NOSTRIL EVERY 12 HOURS Rx Instructions: SHAKE LIQUID AND USE 1 SPRAY IN EACH NOSTRIL EVERY 12 HOURS (DME) Accu-Chek SmartView Test Strip Strip See Rx Instructions .Route Qty: 100 3RF Rx Instructions: Use to check BS once daily. doxepin 10 mg capsule See Rx Instructions .ROUTE .COMPLEX Qty: 180 1RF Dose Instruction: TAKE 2 CAPSULES EVERY DAY Rx Instructions: TAKE 2 CAPSULES EVERY DAY furosemide 40 mg tablet See Rx Instructions .ROUTE .COMPLEX Qty: 90 1RF Dose Instruction: TAKE 1 TABLET EVERY MORNING Rx Instructions: TAKE 1 TABLET EVERY MORNING gabapentin 300 mg capsule See Rx Instructions .ROUTE .COMPLEX Qty: 810 1RF Dose Instruction: TAKE 3 CAPSULES THREE TIMES DAILY Rx Instructions: TAKE 3 CAPSULES THREE TIMES DAILY levothyroxine 75 mcg tablet See Rx Instructions .ROUTE .COMPLEX Qty: 90 1RF Dose Instruction: TAKE 1 TABLET EVERY DAY Rx Instructions: TAKE 1 TABLET EVERY DAY simvastatin 20 mg tablet See Rx Instructions .ROUTE .COMPLEX Qty: 90 1RF Dose Instruction: TAKE 1 TABLET EVERY DAY Rx Instructions: TAKE 1 TABLET EVERY DAY metformin 500 mg tablet See Rx Instructions .ROUTE .COMPLEX Qty: 360 1RF Dose Instruction: TAKE 2 TABLETS BY MOUTH TWICE DAILY Rx Instructions: TAKE 2 TABLETS BY MOUTH TWICE DAILY Follow-up/Referrals: Herb Brownlee, [Primary Care Provider] -
[2024-07-30 18:06] VITALS: TEMP 36.5
== END 2024-07-30 18:26 | disposition home or self-care (01) ==
PROVIDERS: Emergency Provider Nurse Practitioner Family; PCP Internal Medicine
DX: R05.9 Cough, unspecified (principal); E11.22 Type 2 diabetes mellitus with diabetic chronic kidney disease; N18.9 Chronic kidney disease, unspecified; E11.42 Type 2 diabetes mellitus with diabetic polyneuropathy; K21.9 Gastro-esophageal reflux disease without esophagitis; E78.5 Hyperlipidemia, unspecified; E03.9 Hypothyroidism, unspecified; M19.90 Unspecified osteoarthritis, unspecified site; Z87.891 Personal history of nicotine dependence
CPT/HCPCS: 99213; G0463

== ENCOUNTER 2024-09-20 15:38 | Outpatient (CLI) | payer MEDICARE, SELFPAY ==
--- NOTE | ~2024-09-20 | XR_ITS ---
EXAM: XR knee RT 3V DATE: 09/20/2024 16:01 HISTORY: M25.562 - Pain in right knee since friday . COMPARISON: None available. FINDINGS: Decreased mineralization. No fracture or dislocation. No lytic or blastic lesion. Old heal ed fibular fracture. Moderate osteoarthritic changes. No erosion or periosteal change. Soft tissues w ithin normal limits. Small volume joint fluid. IMPRESSION: No acute osseous finding in the right knee. Reviewed, dictated and finalized at location [facility]
== END 2024-09-20 15:39 | disposition home or self-care (01) ==
PROVIDERS: PCP Internal Medicine; Visit Provider Clinical Nurse Specialist
DX: M25.561 Pain in right knee (principal)
CPT/HCPCS: 73562

== ENCOUNTER 2025-05-09 14:38 | Outpatient (CLI) | payer MEDICARE, SELFPAY ==
--- NOTE | 2025-05-09 14:45 | ECG_ITS ---
Test Date: 2025-05-09 15:06:04 Measurements Intervals [place] Rate: 80 P: 55 VA: 169 QRS: -9 QRSD: 87 T: 54 QT: 391 QTc: 452 Interpretive Statements SINUS RHYTHM POSSIBLE RIGHT VENTRICULAR CONDUCTION DELAY BORDERLINE ECG No previous ECG available for comparison Electronically Signed On 05-09-2025 16:33:25 CDT by Leonard Drummond D.O.
--- OUTSIDE RECORDS SUMMARY | 2025-05-09 14:52 | XMS_ITS | Encounter Summary ---
Author Organization [facility] Address [address] [place] [address] Phone Care Team Providers Care Assistant Mechanic Name Role Phone Herb Brownlee DO Primary Care Provider [phone] Pablito Tejada MD Unavailable [phone] Encounter Details Date Type Department Care Team (Late st Contact Info) Description 06/16/2023 Treatment [facility] [address] [facility] Medical Office Building [address] [place] [address] Everette Courtney MD [facility] [address] Social History Tobacco Use Types Packs/Day Years Used Date Smoking Tobacco: Former Cigarettes 0.3 32 1 963 - 1994 Smokeless Tobacco: Never Alcohol Use Standard Drinks/Week Comments Yes 2 (1 standard drink = 0.6 oz pur e alcohol) 2x/week maybe AUDIT-C Answer Date Recorded Q1: How often do you have a drink containing alc ohol? Monthly or less 01/11/2021 Q2: How many drinks containi ng alcohol do you have on a typical day when you are drinking? 1 or 2 01/11/2021 Q3: How often do you have si x or more drinks on one occasion? Never 01/11/2021 Hunger Vital Sign Answer Date Recorded Within the past 12 months, y ou worried that your food would run out before you got the money to buy more. Never true 06/17/20 23 Within the past 12 months, t he food you bought just didn't last and you didn't have money to get more. Never true 06/17/2023 Personal Safety Answer Date Recorded Have you ever been in or are you currently in a harmful physical or emotional relationship or is someone making you feel afraid or unsafe? 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
--- OUTSIDE RECORDS SUMMARY | 2025-05-09 14:52 | XMS_ITS | Encounter Summary ---
Author Organization [facility] Address [address] [place] [address] Phone Care Team Providers Care Mend Worker Name Role Phone Herb Brownlee DO Primary Care Provider [phone] Pablito Tejada MD Unavailable [phone] Encounter Details Date Type Department Care Team (Late st Contact Info) Description 06/15/[address] 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
--- OUTSIDE RECORDS SUMMARY | 2025-05-09 14:52 | XMS_ITS | Clinical Summary ---
Author Organization [facility] Healthcare Address [address] [place] [address] Care Team Providers Care Business Administration Instructor Name Role Phone Herb Brownlee DO Primary Care Provider [phone] Pablito Tejada MD Unavailable [phone] Allergies Active Allergy Reactions Criticality Noted Date Comments Tramadol Nausea only Low 04/24/2021 Medications allopurinol (ZYLOPRIM) 300 mg tabletIndicatio ns:prevention of acute gout attack Take 1 tablet (300 mg total) by mouth every morning Active gabapentin (NEURONTIN) 300 mg capsuleIndicati ons:Neuropathic Pain Take 1 capsule (300 mg total) by mouth 3 (three) times a day 8 Active levothyroxine (SYNTHROID, LEVOTHROID) 75 mcg tabletIndicatio ns:hypothyroidi sm Take 1 tablet (75 mcg total) by mouth seismograph supervisor before breakfast Active metFORMIN (GLUCOPHAGE) 500 mg tabletIndicatio ns:type 2 diabetes mellitus Take 2 tablets (1,000 mg total) by mouth 2 (two) times a day with meals 8 Active simvastatin (ZOCOR) 20 mg tabletIndicatio ns:hyperlipidem ia Take 1 tablet (20 mg total) by mouth nightly Active ACCU-CHEK SMARTVIEW TEST STRIP strip 8 Active doxepin (SINEquan) 10 mg capsuleIndicati ons:anxiety Take 1 capsule (10 mg total) by mouth nightly 2 9 Active blood sugar diagnostic, drum strip Accu-Chek Compact Plus Test Strips Active lancets [facility] Accu-Chek Fastclix Lancet Drum Active blood-glucose meter (Accu-Chek Olive) [facility] Active albuterol HFA (PROVENTIL HFA,VENTOLIN HFA,PROAIR HFA) 90 mcg/actuation inhaler Inhale 2 puffs every 6 (six) hours as needed for wheezing or shortness of breath Active furosemide (LASIX) 40 mg tablet Take 1 tablet (40 mg total) by mouth daily Active fluticasone propionate (FLONASE) 50 mcg/actuation nasal spray SHAKE LIQUID AND USE 1 SPRAY IN EACH NOSTRIL EVERY 12 HOURS 2 Active ergocalciferol (VITAMIN D) 50,000 unit capsule Take 1 capsule (50,000 Units total) by mouth once a week Take 1 capsule every 7 days for 8 weeks 8 capsule 3 Active Additional Information Patient not taking.Reported on 05/05/2023 cholecalciferol (Vitamin D3) 2000 unit tablet Active Active Problems Problem Noted Date Diagnosed Date Age-related osteoporosis wit hout current pathological fracture 05/02/2022 History of endometrial cancer 04/28/2022 BUENROSTRO (dyspnea on exertion) 02/05/2022 Edema of both lower extremities 02/05/2022 Mitral valve disease 02/05/2022 Mixed diabetic hyperlipidemi a associated with type 2 diabetes mellitus 02/05/2022 CKD stage 3 due to type 2 diabetes mellitus 01/27 Chronic kidney disease 04/24/2021 Postmenopausal bleeding 04/24/2021 Follow-up examination following surgery 03/06/20 21 Essential hypertension 01/17/2021 Hyperlipidemia 01/17/2021 Type 2 diabetes mellitus 01/17/2021 Asthma 01/17/2021 GERD (gastroesophageal reflux disease) Gout 01/17/2021 Hypothyroidism 01/17/2021 Vitamin D deficiency 01/17/2021 Prophylactic antibiotic 01/11/2021 Cervical stenosis of spine 01/03/2021 Bunion 03/09/2020 H/O colonoscopy with polypectomy 08/09/2019 Overview (08/09/2019): Added automatically from request for surgery [id number] Nausea 05/06/2019 Overview (05/06/2019): Added automatically from request for surgery [id number] Diarrhea 05/06/2019 Overview (05/06/2019): Added automatically from request for surgery [id number] Routine cancer follow-up visit 09/16/2017 Atrophic vulvitis 09/16/2017 Encounter for education 02/11/2017 Malignant neoplasm of endometrium 02/13/2016 Stenosis of lumbosacral spine 08/02/2015 Resolved Problems Problem Noted Date Diagnosed Date Resolved Date Localized swelling of lower extremity 02/05/2022 02/05/2022 Benign hypertensive heart an d kidney disease with heart failure and chronic kidney disease stage V or end stage renal disease(404.13) 02/05/2022 02/05/2022 Immunizations Immunization Administration Dates Next Due Influenza, Quad, Adjuvantate d, Intramuscular 07/16/2020 Influenza, Trivalent, High D ose, Split, Preservative Free, Intramuscular 07/09/2019,06/15/2017,08/09/2015 Influenza, Unspecified 07/19/2016 Pneumococcal Conjugate, Unspecified 10/03/2015 Pneumococcal Polysaccharide PPV23 10/03/2015 Surgical History Surgery Date Site/Laterality Comments PORT PLACEMENT CHEST >5 YEARS 03/20/2016 N/A TONSILLECTOMY TOTAL ABDOMINAL HYSTERECTOMY W/ BILATERAL SALPINGOOPHORECTOMY 01/28/2016 - 02/27/2016 LUMBAR FUSION 09/29/2015 - 10/29/2015 MARIO FUNDOPLICATION 09/29/2002 - 09/28/2003 POSTERIOR LAMINECTOMY / DECO MPRESSION CERVICAL SPINE 01/22/2021 Medical History Medical History Date Comments Type 2 diabetes mellitus without complications ( HCC) 2014 Uterine cancer (HCC) 2016 s/p chemoth erapy Gout PONV (postoperative nausea and vomiting) Asthma Hx of adenomatous colonic polyps Duodenal ulcer 05/2019 Anemia Urinary incontinence DDD (degenerative disc disease), lumbar Hypertension History of transfusion Hypothyroidism Broken tibia 2020 Family History Medical History Relation Name Comments Clotting disorder Brother Emphysema Father 59 natural causes Mother 84 Anesthesia problems Neg Hx Broken bones Neg Hx Hip fracture Neg Hx Kyphosis Neg Hx Osteoporosis Neg Hx Scoliosis Neg Hx Relation Name Status Comments Brother Father 59 Mother 84 Social History Tobacco Use Types Packs/Day Years Used Date Smoking Tobacco: Former Cigarettes 0.3 32 1 963 - 1995 Smokeless Tobacco: Never Tobacco Cessation:Counseling Given: Not Answered Alcohol Use Standard Drinks/Week Comments Yes 2 [...] on file 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 Gender Identity Not on file Sexual Orientation Not on file Occupation Industry Job Start Date Job End Date retired Not on file Not on file Not on file Obstetrics History Para Term AB IAB SAB Ectopic Multiple Livin g Live Births 1 1 1 0 0 1 Date Outcome GA Total Labor Labor/2nd/3rd Weight Sex Type Anes PTL Dee A1 A5 Name Clin Term Last Filed Vital Signs Vital Sign Reading Time Taken Comments Blood Pressure 153/85 06/17/2023 11:19 AM CDT Pulse 86 06/17/2023 11:16 AM CDT Temperature 36.1 C (97 F) 05/30/2022 2:43 PM CDT Respiratory Rate 16 05/30/2022 2:43 PM CDT Oxygen Saturation 98% 06/17/2023 11:16 AM CDT Inhaled Oxygen Concentration - - Weight 77.1 kg (170 lb) 01/20/2024 2:14 PM CDT Height 160 cm (5' 3) 01/20/2024 2:14 PM CDT Body Mass Index 30.11 01/20/2024 2:14 PM CDT Plan of Treatment Health Maintenance Due Date Last Done Comments Depression Screening 1950 Hepatitis C Screening 1950 Dilated Eye Exam 1950 Foot Exam 1950 DTaP/Tdap/Td Vaccine (1 - Tdap) 1959 Hepatitis B Screening 1966 Zoster Vaccine (1 of 2) 1998 Well Visit 65+ 2013 Albumin Creatinine Ratio, Urine 02/11/2018 7 Hemoglobin A1C 07/13/2021 01/11/2021, 02/11/2017 Fall Risk Assessment 01/26/2022 01/26/2021 Lipid Panel 02/05/2023 02/05/2022, 01/27, 10/02/2015 eGFR 01/11/2025 01/12/2024, 11/27, 05/30/2022, Additional history exists Influenza Vaccine (#1) 2025 , 07/09/2019, 06/15/2017, Additional history exists Osteoporosis Screening-Bone Density Scan 01/11/2026 01/12/2024, 12/09/2022, 12/03/2021, Additional history exists Pneumococcal vaccine 65+ Completed 10/03/2015, 01/2016 Colon Cancer Screening-CT Colonography Discontinued 11/29/2019, 06/03/2019 Colon Cancer Screening-Colonoscopy Discontinued 11/29/2019, 06/03/2019 Colon Cancer Screening-DNA Stool Discontinued 11/29/19 20, 06/03/2019 Colon Cancer Screening-FIT Discontinued 11/29/2019, Colon Cancer Screening-FOBT Discontinued 11/29/2019, 0 06/03/2019 Colon Cancer Screening-Sigmoidoscopy Discontinued 11/29/2019, 06/03/2019 Colorectal Cancer Screening Discontinued Medical Devices Implanted Type Area Injection Molder Device Identifier Shelf Expiration Date Model / Serial / Lot Hardware N/A: Back Medtronic Sofamor Danek [id number] Centerpiece 12mm Lateral Hole Open Door Color Coded Spine Plate - [id number] Implanted:Qty: 3 on 01/22/2021 by Nico Moore MD at [facility] N/A: Spine Cervical Medtronic Inc [id number] / / Medtronic Sofamor Danek [id number] Centerpiece 3mm 7mm Self Tap Stab Grab Color Coded Spine Screw - [id number] Implanted:Qty: 1 on 01/22/2021 by Nico Moore MD at [facility] N/A: Spine Cervical Medtronic Inc [id number] / / Medtronic Sofamor Danek [id number] Centerpiece 2.6mm 5mm Self Tap Stab Grab Color Coded Spine Screw - [id number] Implanted:Qty: 7 on 01/22/2021 by Nico Moore MD at [facility] N/A: Spine Cervical Medtronic Inc [id number] / / Medtronic Sofamor Danek [id number] Centerpiece 2.6mm 7mm Self Tap Stab Grab Color Coded Spine Screw - [id number] Implanted:Qty: 6 on 01/22/2021 by Nico Moore MD at [facility] N/A: Spine Cervical Medtronic Inc [id number] / / Medtronic Sofamor Danek [id number] Centerpiece Hinge Trough Spine Angle Small Plate Bone Titanium - [id number] Implanted:Qty: 1 on 01/22/2021 by Nico Moore MD at [facility] N/A: Spine Cervical Medtronic Inc [id number] / / Procedures Procedure Name Priority Date/Time Associated Diagnosis Comments EGFR Routine 01/12/2024 2:11 PM CDT Age-related osteoporosis without current pathological fracture DEXA TBS AXIAL SKELETON BONE DENSITY 1 OR MORE SITES Schedule Routine, Read Routine (OP Routine) 01/12/2024 1:27 PM CDT Age-related osteoporosis without current pathological fracture POCT LIPID PANEL Routine 02/05/2022 3:56 PM CDT Lipid screening POCT HEMOGLOBIN A1C Routine 01/11/2021 11:40 AM CDT COLONOSCOPY 11/29/2019 7:24 AM STRING STUDIES DIRECTOR ALBUMIN / CREATININE URINE RATIO, RANDOM Routine Gen Lab 02/11/2017 8:30 AM CDT from Last 3 Months or Most Recently Relevant to Health Maintenance Results * (ABNORMAL) eGFR (01/12/2024 2:11 PM CDT) eGFR 55(L) >=60 mL/min/1. 73 m2 Comment: Interpretive Data Reference Interval Normal >/= 90 mL/min/1.73m2 Mildly decreased* 60 - 89 mL/min/1.73m2 Mildly to moderately decreased 45 - 59 mL/min/1.73m2 Moderately to severely decreased 30 - 44 mL/min/1.73m2 Severely decreased 15 - 29 mL/min/1.73m2 Kidney Failure < 15 mL/min/1.73m2 *Relative to young adult level Estimated glomerular filtration rate is determined by the 2020 CKD-EPI equation recommended by the National Kidney Foundation (A Unifying Approach to GFR Estimation: Recommendations of the NKF-ASK Task Force on Reassessing the Inclusion of Race in Diagnosing Kidney Disease, JASN 2020). The CKD-EPI equation should not be used for patients with unstable renal function and has not been validated in children and those over 70. Current interpretive data was last reviewed 2021. Blood 01/12/2024 2:11 PM CDT 01/12/2024 4:19 PM CDT us Everette Courtney MD LAB BLOOD ORDERABLES Final Resu lt [facility] Department [place] [address] * Dexa TBS Axial Skeleton Bone Density 1 or more sites (01/12/2024 1:27 PM CDT) Anatomical Region Laterality Modality Wrist, Body N/A Radiographic Kourtney ging Narrative 01/12/2024 1:35 PM CDT Patient Name: Arely Welch Date of : 1950 Date of scan: 01/12/2024 Bone mineral density was performed on a HoloTV Compass Discovery Densitometer. Based on machine cross-calibration and precision studies the least significant changes of this densitometer is 0.024 g/cm2 at the spine, 0.020 g/cm2 at the total proximal femur, and 0.014g/cm2 at the forearm. HISTORY: This is a 73 y.o. postmenopausal female with a history of asthma, osteoporosis, thyroid disease, and vitamin D deficiency. She reports that she quit smoking about 29 years ago. She started smoking about 61 years ago. She has a 8 pack-year smoking history. She has never used smokeless tobacco. Currently on treatment with vitamin D, zoledronic acid (Reclast), thyroid hormone, and diuretics and current complaint of back pain. INDICATIONS: Menopause status, treatment monitoring, vitamin D deficiency, and history of osteoporosis. FINDINGS: BONE MINERAL DENSITY OF THE PROXIMAL FEMUR Bone Mineral Density (BMD) of the left hip total was found to be 0.694 gm/cm2. This corresponds to a T-score standard deviations from the mean of young adults of -2.0. Femoral neck is 0.537 gm/cm2 with a T-score (standard deviations from the mean of young adults) of -2.8. When compared to the previous study of 12/09/2022 there has been no significant changes in bone density. BONE MINERAL DENSITY OF THE FOREARM Bone Mineral density (BMD) of the left proximal 1/3 of the radius measures 0.619 gm/cm2. This corresponds to a T-score (standard deviations from the mean of young adults) of -1.3. When compared to the previous study of 12/09/2022 there has been a -0.040 gm/cm (-6.1%) decrease in bone density that is considered significant. A forearm bone density study was performed instead of a spine study because of presence of surgical hardware. SUMMARY: Bone mineral density shows evidence of osteoporosis and marked increase risk of fracture. There has been a significant decrease in bone density since previous measurement. The lumbar spine Trabecular Bone Score TBS was not obtained due to the bone mineral density of the spine not being acquired. ADDITIONAL COMMENTS: Postmenopausal Women and Men Over 50: Diagnostic criteria: Osteoporosis: BMD at or below -2.5 T-score; Osteopenia (low bone mass): BMD between -1.0 and -2.5 T-score. If the patient has a history of a fragility fracture, a fracture that occurred with trauma equivalent to a fall from a standing position or less, then the diagnosis is osteoporosis regardless of bone density. The history and data sections of the bone mineral density scan were prepared by Iram Presley)(Rayo)(BD) CBDT who is accredited by the International Society of Clinical Densitometry. The overall patient assessment and scan interpretation were performed by Everette Courtney MD who is certified by the International Society of Clinical Densitometry. [id number] Everette Courtney MD IMG DXA PROCEDURES Final Result * POCT lipid panel (02/05/2022 3:56 PM CDT) Cholesterol, POC 120 mg/dL HDL, POC 34 mg/dL Triglycerides, POC 219 mg/dL LDL Cholesterol POC 42 mg/dL Chol/HDL Ratio, POC 3.5 Non-HDL Cholesterol, POC 85 mg/dL Cholesterol Total, POC 120 mg/dL Capillary blood 02/05/2022 3 :56 PM CDT Rosita Martin MD POINT OF CARE TEST ORDERABL ES Final Result * (ABNORMAL) POCT hemoglobin A1c (01/11/2021 11:40 AM CDT) Hgb A1C, POC 6.7(H) 4.0 - 6.0 % [facility] Est Average Gluc POC 146 mg/dL [facility] Comment: The ADA recommends reporting an estimated Average Glucose (eAG) with all Hemoglobin A1c results using the equation derived from a study of 507 normal and diabetic adults. Minority populations were underrepresented and children were not included. (Diabetes Care 31:8444-3358, 2008). The eAG is not equivalent to a fasting glucose. Blood specimen (specimen) 01/11/2021 11:40 AM CDT 01/11/2021 11:40 AM CDT Nico Moore MD POINT OF CARE TEST O RDERABLES Final Result [facility] Department [place] [address] * COLONOSCOPY (11/29/2019 7:24 AM STRING STUDIES DIRECTOR) Anatomical Region Laterality Modality Other Narrative Procedure Note Tabitha Dyson MD PhD - 11/29/2019 7:24 AM CST ENDOSCOPY LAB Patient Name: Arely Welch Procedure Date: 11/29/2019 7:24 AM Date of : 1950 Admit Type: Outpatient Age: 69 Gender: Female Attending MD: Tabitha Dyson MD,PHD Room: [facility] ENDOSCOPY ROOM 03 Note Status: Finalized Procedure: Colonoscopy Indications: High risk colon cancer surveillance: Personal historyof colonic polyps, , Last colonoscopy: May 2019 (tubulovillous adenoma) Providers: Tabitha Dyson MD, PHD Referring MD: Herb Brownlee, Medicines: Monitored Anesthesia Care Complications: No immediate complications. Estimated Blood Loss: Estimated blood loss: none. Procedure: Pre-Anesthesia Assessment: - Immediately prior to administration of medications,the patient was re-assessed for adequacy to receivesedatives. The benefits, risks and alternatives of the procedureand sedation were discussed and informed consent wasobtained. All questions were answered. Please refer to the signed informed consent document in the medical record. Thescope was passed under direct vision. The [id number] introduced through the anus and advanced to the cecum, identified by appendiceal orifice and ileocecal valve.The colonoscopy was performed without difficulty. Thepatient tolerated the procedure well. The quality of the bowel preparation was excellent. The quality of the bowel preparation was evaluated using the BBPS ([place] Bowel Preparation Scale) with scores of: Right Colon = 3, Transverse Colon = 3 and Left Colon = 3 (entire mucosa seen well with no residual staining, small fragments of stool or opaque liquid). The total BBPS score equals 9. The bowel preparation used was polyethylene glycol(PEG) and magnesium citrate. Bowel prep was administeredusing a split dose. Findings: The perianal and digital rectal examinations were normal. A 10 mm polyp was found in the rectum. The polyp was Josie classification Is (protruding, sessile). The polyp was removed with a piecemeal technique using a hot snare. Resection and retrieval were complete. Scattered small-mouthed diverticula were found from ascending colonto sigmoid colon. A few angioectasias without bleeding were found in the distalrectum. The exam was otherwise without abnormality. Impression: - One 10 mm polyp in the rectum, removed piecemealusing a hot snare. Resected and retrieved. - Diverticulosis from ascending colon to sigmoidcolon. - A few non-bleeding colonic angioectasias. - The examination was otherwise normal. Recommendation: - Await pathology results. - Repeat colonoscopy in 3 years for surveillance basedon pathology results. - High fiber diet. Attending Participation: I personally performed the entire procedure. Electronically signed by Tabitha Dyson MD. Tabitha Dyson MD, PHD 11/29/2019 8:46:58 AM Number of Addenda: 0 Note Initiated On: 11/29/2019 7:24 AM us Tabitha Dyson MD PhD ENDOSCOPY PROCEDURES Elin l Result * (ABNORMAL) ALBUMIN / CREATININE URINE RATIO, RANDOM (02/11/2017 8:30 AM CDT) Microalbumin, ur 12.6 mcg/mL [facility] Creatinine, ur 31.30 mg/dL [facility] Microalbumin/c reat ratio 40.3(H) 0.1 - 29.9 mcg/mg Cr [facility] Urine 02/11/2017 8:30 AM CDT 02/11/2017 10:29 AM CDT us Nico Vergara MD LAB BLOOD BANK TEST ORDERAB LES Final Result [facility] Department [place] [address] from Last 3 Months or Most Recently Relevant to Health Maintenance Insurance [employer] MEDICARE O [employer] MEDICARE HMO [facility] MEDICARE HMO Advance Directives For more information, please contact: [phone] * Full Code (Latest Code Status on File) Date Activated Date Inactivated Comments 01/22/2021 6:19 PM 01/26/2021 3:27 PM * Full Code Date Activated Date Inactivated Comments 11/29/2019 7:05 AM 11/29/2019 2:13 PM * Full Code Date Activated Date Inactivated Comments 06/03/2019 10:51 AM 06/03/2019 5:16 PM Care Teams Business Administration Instructor Relationship Specialty Start Date End Date Herb Brownlee DO PCP - General 12/18/16 Pablito Tejada MD [address] [place] [address] Referring Physician Obstetrics and Gynecology 10/09/18
--- OUTSIDE RECORDS SUMMARY | 2025-05-09 14:52 | XMS_ITS ---
Author Organization [facility] Healthcare Address [address] [place] [address] Care Team Providers Care Vegetable Tester Name Role Phone Herb Brownlee DO Primary Care Provider [phone]- [phone] Pablito Tejada MD Unavailable [phone] Active Problems Problem Noted Date Diagnosed Date [...] bleeding 04/24/2021 Follow-up examination following surgery 03/06/20 Essential hypertension 01/17/2021 Hyperlipidemia 01/17/2021 Type 2 diabetes mellitus 01/17/2021 Asthma 01/17/2021 GERD (gastroesophageal reflux disease) Gout 01/17/2021 Hypothyroidism 01/17/2021 Vitamin D deficiency 01/17/2021 Prophylactic antibiotic 01/11/2021 Cervical stenosis of spine 01/03/2021 Bunion 03/09/2020 H/O colonoscopy with polypectomy 08/09/2019 Overview (08/09/2019): Added automatically from request for surgery [id number] Nausea 05/06/2019 Overview (05/06/2019): Added automatically from request for surgery [id number] Diarrhea 05/06/2019 Overview (05/06/2019): Added automatically from request for surgery [id number] Routine cancer follow-up visit 09/16/2017 Atrophic vulvitis 09/16/2017 Encounter for education 02/11/2017 Malignant neoplasm of endometrium 02/13/2016 Stenosis of lumbosacral spine 08/02/2015 Current Treatment and Therapy Plans No current plan information found. Other Current Plans Zoledronic Acid (Reclast) Infusion* Plan Start Date:05/30/2022 Plan Provider:Everette Courtney MD Linked Problems Age-related osteoporosis wit hout current pathological fracture Treatment Medications No medications scheduled. Past Treatment and Therapy Plans No past plan information found. 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
--- OUTSIDE RECORDS SUMMARY | 2025-05-09 14:52 | XMS_ITS | Encounter Summary ---
Author Organization [facility] Healthcare Address [address] [place] [address] Care Team Providers Care Account Group Supervisor Name Role Phone Herb Brownlee DO Primary Care Provider [phone] Pablito Tejada MD Unavailable Encounter Details Date Type Department Care Team (Late st Contact Info) Description 06/11/[address] [facility] [address] [place] [address] Deandra Pruitt, [address] [place] [address] Social History Tobacco Use Types Packs/Day Years [...] more drinks on one occasion? 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
--- OUTSIDE RECORDS SUMMARY | 2025-05-09 14:52 | XMS_ITS | Encounter Summary ---
Author Organization [facility] Address [address] [place] [address] Phone Care Team Providers Care Bolt Header Name Role Phone Herb Brownlee DO Primary Care Provider +1- [phone] Pablito Tejada MD Unavailable [phone] Encounter Details Date Type Department Care Team (Late st Contact Info) Description 01/20/2023 Treatment [facility] [address] [facility] Office [address] [place] [address] Everette Courtney MD On license of [facility] [address] Social History Tobacco Use Types [...] on file 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
--- OUTSIDE RECORDS SUMMARY | 2025-05-09 14:53 | XMS_ITS | Clinical Summary ---
Author Organization [facility] Address [address] [place] [address] Care Team Providers Care Tile Erector Name Role Phone Unavailable Primary Care Provider Unavailabl e Source Comments [facility],non-owned Affiliates and Associated Physician Practices is amultiple site organization consisting of ambulatory clinics and hospital sitesin [place], [place], [place] and [place]. This disclosure is being madepursuant to the Care Everywhere program and may not contain all information available regarding this patient. Last updated 18.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 Gender Identity Not on file Sexual Orientation Not on file Plan of Treatment Health Maintenance Due Date Last Done Comments BONE DENSITY TESTING 1950 HEPATITIS C SCREENING 03/11/1966 DTAP/TDAP/TD VACCINES (1 - Tdap) 1967 PNEUMOCOCCAL VACCINE 50+ (1 of 1 - PCV) 1998 ZOSTER VACCINE (1 of 2) 1998 Respiratory Syncytial Virus (RSV) Vaccine Pt: or over 60 yrs (1 - 1-dose 75+ series) 2023 COVID-19 VACCINE ( - 2023-2 5 season) 2024 DEPRESSION SCREENING 09/29/2024 MEDICARE AWV CALENDAR YEAR 2024 INFLUENZA VACCINE (#1) 2025 HEPATITIS B VACCINE Aged Out No longe r eligible based on patient's age to complete this topic HIB VACCINE Aged Out No longer eligi ble based on patient's age to complete this topic HPV VACCINE Aged Out No longer eligi ble based on patient's age to complete this topic MENINGOCOCCAL (Group B) VACC INE SHARED DECISION-MAKING Aged Out No longer eligibl e based on patient's age to complete this topic MENINGOCOCCAL GROUPS A/C/Y/W VACCINE Aged Out No longer eligible b ased on patient's age to complete this topic Insurance H[employer]AN HUMANA MEDICARE ADV HMO & PPO
--- OUTSIDE RECORDS SUMMARY | 2025-05-09 14:53 | XMS_ITS | Encounter Summary ---
Author Organization [facility] Address [address] [place] [address] Care Team Providers Care Hinging Machine Operator Name Role Phone Unavailable Primary Care Provider Unavailabl e Encounter Details Date Type Department Care Team (Late st Contact Info) Description 10/14/2023 Lab Requisition [facility] - DermPath Lab [address] [facility] [place] [phone] Chadd Maddox MD [address] [place] [address] Social History Tobacco Use Types Packs/Day Years Used Date Smoking Tobacco: Never Assessed Comments Unknown Sex and Gender Information Value Date Recorded Sex Assigned at Not on file Legal Sex Female 6:25 AM REFRIGERATOR ASSEMBLER Gender Identity Not on file Sexual Orientation Not on file documented as of this encounter Plan of Treatment Not on file documented as of this encounter Procedures Procedure Name Priority Date/Time Associated Diagnosis Comments DERMATOPATHOLOGY Routine 10/13/2023 12:0 0 AM REFRIGERATOR ASSEMBLER documented in this encounter Results * DERMATOPATHOLOGY (10/13/2023 12:00 AM REFRIGERATOR ASSEMBLER) Case Report Dermatopathology Report Case: [id number] Authorizing Provider: Chadd Maddox MD Collected: 10/13/2023 12:00 AM Ordering Location: [facility] DermPath Lab Received: 10/14/2023 03:27 PM Pathologist: Beena Trejo MD Specimens: A) - Skin, left lateral brow B) - Skin, left medial trapezius C) - Skin, left scapula D) - Skin, left mid back 12:59 PM REFRIGERATOR ASSEMBLER DERMATOPATHOLOGY LABORATORY Final Diagnosis Specimen A. SKIN, left lateral brow: BASAL CELL CARCINOMA, NODULAR TYPE (C44.319) Specimen B. SKIN, left medial trapezius: BASAL CELL CARCINOMA, NODULAR TYPE (C44.519) Specimen C. SKIN, left scapula: BASAL CELL CARCINOMA, INFILTRATIVE PATTERN (C44.519) Specimen D. SKIN, left mid back: BASAL CELL CARCINOMA, INFILTRATIVE PATTERN (C44.519) 12:59 PM [facility] DERMATOPATHOLOGY LABORATORY at 1259 REFRIGERATOR ASSEMBLER Clinical History A: BCCA vs. SCCA. Path# [id number] B: BCCA vs. SCCA. Path# [id number] C: BCCA vs. SCCA. Path# [id number] D: BCCA vs. SCCA. Path# [id number] 12:59 PM [facility] DERMATOPATHOLOGY LABORATORY Gross Description Specimen A: Received is one formalin filled container labeled with the patient's name and designated left lateral brow. The specimen consists of a shave biopsy measuring 6x4x1 mm. Jar 0. Specimen B: Received is one formalin filled container labeled with the patient's name and designated left medial trapezius. The specimen consists of a shave biopsy measuring 6x6x2 mm. Jar 0. Specimen C: Received is one formalin filled container labeled with the patient's name and designated left scapula. The specimen consists of a shave biopsy measuring 7x5x1 mm. Jar 0. Specimen D: Received is one formalin filled container labeled with the patient's name and designated left mid back. The specimen consists of a shave biopsy measuring 7x6x1 mm. Jar 0. 4 12:59 PM [facility] DERMATOPATHOLOGY LABORATORY Microscopic Description Specimen A. SKIN, left lateral brow: Within the dermis there are aggregates of basaloid cells with a high nuclear to cytoplasmic ratio and peripheral palisading. Specimen B. SKIN, left medial trapezius: Within the dermis there are aggregates of basaloid cells with a high nuclear to cytoplasmic ratio and peripheral palisading. Specimen C. SKIN, left scapula: Within the dermis there are nodular aggregates of basaloid cells associated with fibromyxoid stroma and epithelial-stromal clefts. At the advancing margin of the neoplasm, there are smaller angulated nests that infiltrate the dermis. Specimen D. SKIN, left mid back: Within the dermis there are nodular aggregates of basaloid cells associated with fibromyxoid stroma and epithelial-stromal clefts. At the advancing margin of the neoplasm, there are smaller angulated nests that infiltrate the dermis. 4 12:59 PM REFRIGERATOR ASSEMBLER DERMATOPATHOLOGY LABORATORY Disclaimer An external and internal positive and negative controls are appropriate for the histochemical, immunohistochemical and immunofluorescence stain(s) in this case (if any), except where stated explicitly. The performance characteristics of the stain(s) cited in this report were developed and its performance characteristic determined by the Dermatopathology Laboratory at [facility], directed by Dr. Fabrizio Tang. These tests need not be, and therefore are not, approved by the [place] Food and Drug Administration. The tests are used for clinical purposes. Billing Codes Specimen Charges Stain Charges 73241 71697 25538 94889 1 1 1 1 4 12:59 PM REFRIGERATOR ASSEMBLER DERMATOPATHOLOGY LABORATORY Embedded Images 4 12:59 PM REFRIGERATOR ASSEMBLER DERMATOPATHOLOGY LABORATORY Pathology/Cytology TISSUE SPECIMEN FROM SKIN / Unknown 10/13/2023 10/14/2023 3:27 PM REFRIGERATOR ASSEMBLER Miscellaneous samples (specimen) TISSUE SPECIMEN FROM SKIN / Unknown 10/13/2023 10/14/2023 3:27 PM REFRIGERATOR ASSEMBLER Miscellaneous samples (specimen) TISSUE SPECIMEN FROM SKIN / Unknown 10/13/2023 10/14/2023 3:27 PM REFRIGERATOR ASSEMBLER Miscellaneous samples (specimen) TISSUE SPECIMEN FROM SKIN / Unknown 10/13/2023 10/14/2023 3:27 PM REFRIGERATOR ASSEMBLER us Chadd Maddox MD LAB - PATHOLOGY/CYTOLOGY ORDER THAIS Final Result DERMATOPATHOLOGY LABORATORY [facility] - Department of Dermatology [address], [address] [phone] documented in this encounter Visit Diagnoses Not on filedocumented in this encounter
[2025-05-09 15:13] LABS: Add Urine Microscopic? YES; Appearance Urine Clear (Clear); Glucose Urine UA Negative (Negative); Leukocyte Esterase Ur 2+ LEU/UL (Negative); Nitrate Urine Negative (Negative); Non Pathogenic Casts 0-2; Specific Grav Ur 1.010 (1.001-1.035)
[2025-05-09 15:49] LABS: Hematocrit 35.8 % (37.0-47.0); Hemoglobin 11.2 g/dL (12.0-15.0); Immature Granulocyte Percent A 0.4 % (0-0.5); Lymphocytes Absolute Auto 1.68 K/mm3 (0.9-3.2); Mean Corpuscular HGB Conc 31.3 g/dl (32-36); Mean Corpuscular Hemoglobin 31.8 pg (26-34); Mean Corpuscular Volume 101.7 fl (80-100); Nucleated Red Blood Cells Absolute Auto 0.000 K/mm3 (0.0-0.012); Nucleated Red Blood Cells Perc 0.0 % (0.0-0.2); Platelet Count Result 221 k/mm3 (150-375); Red Blood Count 3.52 M/mm3 (4.2-5.4); White Blood Count 7.8 K/mm3 (4.5-10.0)
== END 2025-05-09 14:39 | disposition home or self-care (01) ==
PROVIDERS: PCP Nurse Practitioner; Visit Provider Orthopaedic Surgery
DX: E11.22 Type 2 diabetes mellitus with diabetic chronic kidney disease (principal); I12.9 Hypertensive chronic kidney disease with stage 1 through stage 4 chronic kidney disease, or unspecified chronic kidney disease; N18.32 Chronic kidney disease, stage 3b; E11.42 Type 2 diabetes mellitus with diabetic polyneuropathy; R53.83 Other fatigue
CPT/HCPCS: 36415; 81001; 85025; 87086; 93005

== ENCOUNTER 2025-05-23 12:45 | Outpatient (CLI) | payer MEDICARE, SELFPAY ==
--- OUTSIDE RECORDS SUMMARY | 2025-05-23 12:52 | XMS_ITS | Encounter Summary ---
Author Organization [facility] Address [address] [place] [address] Care Team Providers Care Resident Program Specialist Name Role Phone Herb Brownlee DO Primary Care Provider [phone]- [phone] Pablito Tejada MD Unavailable [phone] Encounter Details Date Type Department Care Team (Late st Contact Info) Description 06/11/2023 Documentation [facility] [address] [place] [address] Deandra Pruitt, [address]AV[address] [place] [address] Social History Tobacco Use Types Packs/Day Years [...] on file Legal Sex Female 9:23 PM 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
--- OUTSIDE RECORDS SUMMARY | 2025-05-23 12:52 | XMS_ITS | Encounter Summary ---
Author Organization [facility] Address [address] [place] [address] Phone Care Team Providers Care Agricultural Lender Name Role Phone Herb Brownlee DO Primary Care Provider [phone]- [phone] Pablito Tejada MD Unavailable [phone] Encounter Details Date Type Department Care Team (Late st Contact Info) Description 06/15/2023 Treatment [facility] [address] [facility] Medical Office Building [address] [place] [address] Everette Courtney MD formerly [facility] [address] [address] Social History Tobacco Use Types [...] on file Legal Sex Female 9:23 PM DISHWASHER BUSSER Gender Identity Not on file Sexual Orientation Not on file Occupation Industry Job Start Date Job End Date retired Not on file Not on file Not on file documented as of this encounter Plan of Treatment Not on file documented as of this encounter Visit Diagnoses Not on filedocumented in this encounter Care Teams Agricultural Lender Relationship Specialty Start Date End Date Herb Brownlee DO PCP - General 12/18/16 Pablito Tejada MD [address] [place] [address] Referring Physician Obstetrics and Gynecology 10/09/18 documented as of this encounter
--- OUTSIDE RECORDS SUMMARY | 2025-05-23 12:52 | XMS_ITS | Encounter Summary ---
Author Organization [facility] Address [address] [place] [address] Phone Care Team Providers Care Biztalk Developer Name Role Phone Herb Brownlee DO Primary Care Provider [phone]- [phone] Pablito Tejada MD Unavailable [phone] Encounter Details Date Type Department Care Team (Late st Contact Info) Description 06/16/2023 Treatment [facility] [address] [facility] Medical Office Building [address] [place] [address] Everette Courtney MD [facility] [address] [address] Social History Tobacco Use Types [...] on file Legal Sex Female 9:23 PM TRACK 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
--- OUTSIDE RECORDS SUMMARY | 2025-05-23 12:53 | XMS_ITS | Clinical Summary ---
Author Organization [facility] Healthcare Address [address] [place] [address] Care Team Providers Care Energy Professional Name Role Phone Herb Brownlee DO Primary Care Provider [phone]- [phone] Pablito Tejada MD Unavailable [phone] Allergies Active Allergy Reactions Criticality Noted Date [...] 1 tablet (75 mcg total) by mouth hand mica plate layer before breakfast Active metFORMIN (GLUCOPHAGE) 500 mg [...] Accu-Chek Compact Plus Test Strips Active lancets [facility] Accu-Chek Fastclix Lancet Drum Active blood-glucose meter (Accu-Chek Olive) [facility] Active albuterol HFA (PROVENTIL HFA,VENTOLIN HFA,PROAIR HFA) [...] (08/09/2019): Added automatically from request for surgery [id number] Nausea 05/06/2019 Overview (05/06/2019): Added automatically from request for surgery [id number] Diarrhea 05/06/2019 Overview (05/06/2019): Added automatically from request for surgery [id number] Routine cancer follow-up visit 09/16/2017 Atrophic vulvitis [...] on file Legal Sex Female 9:23 PM AIR POLLUTION ANALYST Gender Identity Not on file Sexual Orientation [...] Screening Discontinued Medical Devices Implanted Type Area Analyzer Sales Device Identifier Shelf Expiration Date Model / Serial / Lot Hardware N/A: Back Medtronic Sofamor Danek [id number] Centerpiece 12mm Lateral Hole Open Door Color Coded Spine Plate - [id number] Implanted:Qty: 3 on 01/22/2021 by Nico Moore MD at [facility] N/A: Spine Cervical Medtronic Inc [id number] / / Medtronic Sofamor Danek [id number] Centerpiece 3mm 7mm Self Tap Stab Grab Color Coded Spine Screw - [id number] Implanted:Qty: 1 on 01/22/2021 by Nico Moore MD at [facility] N/A: Spine Cervical Medtronic Inc [id number] / / Medtronic Sofamor Danek [id number] Centerpiece 2.6mm 5mm Self Tap Stab Grab Color Coded Spine Screw - [id number] Implanted:Qty: 7 on 01/22/2021 by Nico Moore MD at [facility] N/A: Spine Cervical Medtronic Inc [id number] / / Medtronic Sofamor Danek [id number] Centerpiece 2.6mm 7mm Self Tap Stab Grab Color Coded Spine Screw - [id number] Implanted:Qty: 6 on 01/22/2021 by Nico Moore MD at [facility] N/A: Spine Cervical Medtronic Inc [id number] / / Medtronic Sofamor Danek [id number] Centerpiece Hinge Trough Spine Angle Small Plate Bone Titanium - [id number] Implanted:Qty: 1 on 01/22/2021 by Nico Moore MD at [facility] N/A: Spine Cervical Medtronic Inc [id number] / / Procedures Procedure Name Priority Date/Time [...] 11:40 AM CDT COLONOSCOPY 11/29/2019 7:24 AM AIR POLLUTION ANALYST ALBUMIN / CREATININE URINE RATIO, RANDOM Routine [...] MD LAB BLOOD ORDERABLES Final Resu lt [facility] Department [place] [address] * Dexa TBS Axial Skeleton Bone Density 1 or more sites (01/12/2024 1:27 PM CDT) Anatomical Region Laterality Modality Wrist, Body N/A Radiographic Kourtney ging Narrative 01/12/2024 1:35 PM CDT Patient Name: Arely Welch Date of : 1950 Date of scan: 01/12/2024 Bone mineral density was performed on a [employer] Discovery Densitometer. Based on machine cross-calibration and [...] by the International Society of Clinical Densitometry. [id number] Everette Courtney MD IMG DXA PROCEDURES Final [...] A1C, POC 6.7(H) 4.0 - 6.0 % [facility] Est Average Gluc POC 146 mg/dL [facility] Comment: The ADA recommends reporting an estimated Average Glucose (eAG) with all Hemoglobin A1c results using the equation derived from a study of 507 normal and diabetic adults. Minority populations were underrepresented and children were not included. (Diabetes Care 31:4735-3326, 2008). The eAG is not equivalent to a fasting glucose. Blood specimen (specimen) 01/11/2021 11:40 AM CDT 01/11/2021 11:40 AM CDT Nico Moore MD POINT OF CARE TEST O RDERABLES Final Result [facility] Department [place] [address] * COLONOSCOPY (11/29/2019 7:24 AM AIR POLLUTION ANALYST) Anatomical Region Laterality Modality Other Narrative Procedure Note Tabitha Dyson MD PhD - 11/29/2019 7:24 AM CST ENDOSCOPY LAB Patient Name: Arely Welch Procedure Date: 11/29/2019 7:24 AM Date of : 1950 Admit Type: Outpatient Age: 69 Gender: Female Attending MD: Tabitha Dyson MD,PHD Room: [facility] ENDOSCOPY ROOM 03 Note Status: Finalized [...] Thescope was passed under direct vision. The [id number] introduced through the anus and advanced to the cecum, identified by appendiceal orifice and ileocecal valve.The colonoscopy was performed without difficulty. Thepatient tolerated the procedure well. The quality of the bowel preparation was excellent. The quality of the bowel preparation was evaluated using the BBPS (Eminence Bowel Preparation Scale) with scores of: Right [...] 8:30 AM CDT) Microalbumin, ur 12.6 mcg/mL [facility] Creatinine, ur 31.30 mg/dL [facility] Microalbumin/c reat ratio 40.3(H) 0.1 - 29.9 mcg/mg Cr [facility] Urine 02/11/2017 8:30 AM CDT 02/11/2017 10:29 AM CDT us Nico Vergara MD LAB BLOOD BANK TEST ORDERAB LES Final Result [facility] Department [place] [address] from Last 3 Months or Most Recently Relevant to Health Maintenance Insurance [employer] MEDICARE O HUMANA MEDICARE HMO [facility] MEDICARE HMO Member Subscriber Plan / Payer (Ef fective 2018-Present) Name:Arely Welch Relation to Subscriber:Self Name:Arely Welch Payer ID:[id number] (NAIC) Type:MEDICARE RISK OTHER Address: [address] [place] [address] Advance Directives For more information, please contact: [phone] * Full Code (Latest Code Status on File) Date Activated Date Inactivated Comments 01/22/2021 6:19 PM 01/26/2021 3:27 PM * Full Code Date Activated Date Inactivated Comments 11/29/2019 7:05 AM 11/29/2019 2:13 PM * Full Code Date Activated Date Inactivated Comments 06/03/2019 10:51 AM 06/03/2019 5:16 PM Care Teams Energy Professional Relationship Specialty Start Date End Date Herb Brownlee DO PCP - General 12/18/16 Pablito Tejada MD [address] [place] [address] Referring Physician Obstetrics and Gynecology 10/09/18
--- OUTSIDE RECORDS SUMMARY | 2025-05-23 12:53 | XMS_ITS | Encounter Summary ---
Author Organization [facility] Address [address] [facility] [place] [address] Care Team Providers Care Scientific Aide Name Role Phone Unavailable Primary Care Provider Unavailabl e Encounter Details Date Type Department Care Team (Late st Contact Info) Description 10/14/2023 Lab Requisition [facility] - DermPath Lab [address] [facility] [place] [address] Chadd Maddox MD [address] [place] [address] Social History Tobacco Use Types Packs/Day Years Used Date Smoking Tobacco: Never Assessed Comments Unknown Sex and Gender Information Value Date Recorded Sex Assigned at Not on file Legal Sex Female 6:25 AM WAREHOUSE RECEIVER Gender Identity Not on file Sexual Orientation Not on file documented as of this encounter Plan of Treatment Not on file documented as of this encounter Procedures Procedure Name Priority Date/Time Associated Diagnosis Comments DERMATOPATHOLOGY Routine 10/13/2023 12:0 0 AM WAREHOUSE RECEIVER documented in this encounter Results * DERMATOPATHOLOGY (10/13/2023 12:00 AM WAREHOUSE RECEIVER) Case Report Dermatopathology Report Case: [id number] Authorizing Provider: Chadd Maddox MD Collected: 10/13/2023 12:00 AM Ordering Location: [facility] DermPath Lab Received: 10/14/2023 03:27 PM Pathologist: Beena Trejo MD Specimens: A) - Skin, left lateral brow B) - Skin, left medial trapezius C) - Skin, left scapula D) - Skin, left mid back 12:59 PM WAREHOUSE RECEIVER DERMATOPATHOLOGY LABORATORY Final Diagnosis Specimen A. SKIN, left lateral brow: BASAL CELL CARCINOMA, NODULAR TYPE (C44.319) Specimen B. SKIN, left medial trapezius: BASAL CELL CARCINOMA, NODULAR TYPE (C44.519) Specimen C. SKIN, left scapula: BASAL CELL CARCINOMA, INFILTRATIVE PATTERN (C44.519) Specimen D. SKIN, left mid back: BASAL CELL CARCINOMA, INFILTRATIVE PATTERN (C44.519) 12:59 PM [facility] DERMATOPATHOLOGY LABORATORY at [address] WAREHOUSE RECEIVER Clinical History A: BCCA vs. SCCA. Path# [id number] B: BCCA vs. SCCA. Path# [id number] C: BCCA vs. SCCA. Path# [id number] D: BCCA vs. SCCA. Path# [id number] 12:59 PM [facility] DERMATOPATHOLOGY LABORATORY Gross Description Specimen A: [...] 7x6x1 mm. Jar 0. 4 12:59 PM [facility] DERMATOPATHOLOGY LABORATORY Microscopic Description Specimen A. [...] that infiltrate the dermis. 4 12:59 PM WAREHOUSE RECEIVER DERMATOPATHOLOGY LABORATORY Disclaimer An external and internal positive and negative controls are appropriate for the histochemical, immunohistochemical and immunofluorescence stain(s) in this case (if any), except where stated explicitly. The performance characteristics of the stain(s) cited in this report were developed and its performance characteristic determined by the Dermatopathology Laboratory at [facility], directed by Dr. Fabrizio Tang. These tests need not be, and therefore are not, approved by the [place] Food and Drug Administration. The tests are used for clinical purposes. Billing Codes Specimen Charges Stain Charges 69090 78625 42264 49923 1 1 1 1 4 12:59 PM WAREHOUSE RECEIVER DERMATOPATHOLOGY LABORATORY Embedded Images 4 12:59 PM WAREHOUSE RECEIVER DERMATOPATHOLOGY LABORATORY Pathology/Cytology TISSUE SPECIMEN FROM SKIN / Unknown 10/13/2023 10/14/2023 3:27 PM WAREHOUSE RECEIVER Miscellaneous samples (specimen) TISSUE SPECIMEN FROM SKIN / Unknown 10/13/2023 10/14/2023 3:27 PM WAREHOUSE RECEIVER Miscellaneous samples (specimen) TISSUE SPECIMEN FROM SKIN / Unknown 10/13/2023 10/14/2023 3:27 PM WAREHOUSE RECEIVER Miscellaneous samples (specimen) TISSUE SPECIMEN FROM SKIN / Unknown 10/13/2023 10/14/2023 3:27 PM WAREHOUSE RECEIVER us Chadd Maddox MD LAB - PATHOLOGY/CYTOLOGY ORDER THAIS Final Result DERMATOPATHOLOGY LABORATORY [facility] - Department of Dermatology [address], [address] [phone] documented in this encounter Visit Diagnoses Not on filedocumented in this encounter
--- OUTSIDE RECORDS SUMMARY | 2025-05-23 12:53 | XMS_ITS | Clinical Summary ---
Author Organization [facility] Address [address] [place] [address] Care Team Providers Care Health Teacher Name Role Phone Unavailable Primary Care Provider Unavailabl e Source Comments [facility],non-owned Affiliates and Associated Physician Practices is amultiple site organization consisting of ambulatory clinics and hospital sitesin [place], [place], [place] and [place]. This disclosure is being madepursuant to the Care Everywhere program and may not contain all information available regarding this patient. Last updated 18.[facility] Social History Tobacco Use Types Packs/Day Years Used Date Smoking Tobacco: Never Assessed Comments Unknown Sex and Gender Information Value Date Recorded Sex Assigned at Not on file Legal Sex Female 6:25 AM BLAST SETTER Gender Identity Not on file Sexual Orientation [...]
--- OUTSIDE RECORDS SUMMARY | 2025-05-23 12:53 | XMS_ITS ---
Author Organization [facility] Address [address] [place] [address] Care Team Providers Care Utility Appraiser Name Role Phone Herb Brownlee DO Primary Care Provider +1- [phone] Pablito Tejada MD Unavailable [phone] Active Problems Problem Noted Date Diagnosed Date [...] (08/09/2019): Added automatically from request for surgery [id number] Nausea 05/06/2019 Overview (05/06/2019): Added automatically from request for surgery [id number] Diarrhea 05/06/2019 Overview (05/06/2019): Added automatically from request for surgery [id number] Routine cancer follow-up visit 09/16/2017 Atrophic vulvitis [...]
--- OUTSIDE RECORDS SUMMARY | 2025-05-23 12:53 | XMS_ITS | Encounter Summary ---
Author Organization [facility] Address [address] [place] [address] Phone Care Team Providers Care Territory Sales Consultant Name Role Phone Herb Brownlee DO Primary Care Provider [phone]- [phone] Pablito Tejada MD Unavailable [phone] Encounter Details Date Type Department Care Team (Late st Contact Info) Description 01/20/2023 Treatment [facility] [address] [facility] [address] [facility] [facility] Medical Office Building [address] [place] [address] Everette Courtney MD [facility] [address] Social History Tobacco Use Types [...] on file Legal Sex Female 9:23 PM EASTER BUNNY Gender Identity Not on file Sexual Orientation Not on file Occupation Industry Job Start Date Job End Date retired Not on file Not on file Not on file documented as of this encounter Plan of Treatment Not on file documented as of this encounter Visit Diagnoses Not on filedocumented in this encounter Care Teams Territory Sales Consultant Relationship Specialty Start Date End Date Herb Brownlee DO PCP - General 12/18/16 Pablito Tejada MD [address] [place] [address] Referring Physician Obstetrics and Gynecology 10/09/18 documented as of this encounter
[2025-05-23 14:41] LABS: Add Urine Microscopic? YES; Appearance Urine Cloudy (Clear); Glucose Urine UA Negative (Negative); Leukocyte Esterase Ur 3+ LEU/UL (Negative); Nitrate Urine Negative (Negative); Non Pathogenic Casts 0-2; Specific Grav Ur 1.009 (1.001-1.035)
[2025-05-23 14:50] LABS: INR 0.9; Prothrombin Time 12.8 Seconds (11.1-14.7)
[2025-05-23 14:51] LABS: Partial Thromboplastin Time 37.0 Seconds (22.3-36.8)
[2025-05-23 15:02] LABS: Hemoglobin A1C 6.3 % (<5.7)
[2025-05-23 15:44] LABS: Albumin Level 4.5 g/dL (3.5-5.1); Anion Gap 11 mmol/L (4-12); Blood Urea Nitrogen 29 mg/dL (7-17); Calcium 9.2 mg/dL (8.4-10.2); Carbon Dioxide 28 mmol/L (22-30); Chloride 100 mmol/L (98-107); Estimated Glomerular Filt Rate 43; Glucose 125 mg/dL (65-110); Potassium 4.0 mmol/L (3.4-5.0); Sodium 139 mmol/L (137-145)
[2025-05-23 15:58] LABS: MRSA (PCR) NOT DETECTED (NOT DETECTE)
== END 2025-05-23 12:46 | disposition home or self-care (01) ==
LOC: ANHSURGERY 12:49
PROVIDERS: PCP Nurse Practitioner; Visit Provider Orthopaedic Surgery
DX: M17.9 Osteoarthritis of knee, unspecified (principal); Z01.818 Encounter for other preprocedural examination
CPT/HCPCS: 80048; 80307; 81001; 82040; 83036; 85610; 85730; 87086; 87641

== ENCOUNTER 2025-06-06 14:06 | Outpatient (CLI) | payer MEDICARE, SELFPAY ==
--- OUTSIDE RECORDS SUMMARY | 2025-06-06 14:11 | XMS_ITS | Encounter Summary ---
Author Organization [facility] Address [address] [place] [address] Care Team Providers Care Interim Controller Name Role Phone Unavailable Primary Care Provider Trentonabl e Encounter Details Date Type Department Care Team (Late st Contact Info) Description 10/14/2023 Lab Requisition [facility] - DermPath Lab [address] [place] [id number] Chadd Maddox MD [address] [address] Social History Tobacco Use Types Packs/Day Years Used Date Smoking Tobacco: Never Assessed Comments Unknown Sex and Gender Information Value Date Recorded Sex Assigned at Not on file Legal Sex Female 6:25 AM PIECE DYER Gender Identity Not on file Sexual Orientation Not on file documented as of this encounter Plan of Treatment Not on file documented as of this encounter Procedures Procedure Name Priority Date/Time Associated Diagnosis Comments DERMATOPATHOLOGY Routine 10/13/2023 12:0 0 AM PIECE DYER documented in this encounter Results * DERMATOPATHOLOGY (10/13/2023 12:00 AM PIECE DYER) Case Report Dermatopathology Report Case: [id number] Authorizing Provider: Chadd Maddox MD Collected: 10/13/2023 12:00 AM Ordering Location: [facility] Received: 10/14/2023 03:27 PM Pathologist: Beena Trejo MD Specimens: A) - Skin, left lateral brow B) - Skin, left medial trapezius C) - Skin, left scapula D) - Skin, left mid back 12:59 PM [facility] Final Diagnosis Specimen A. SKIN, left lateral brow: BASAL CELL CARCINOMA, NODULAR TYPE (C44.319) Specimen B. SKIN, left medial trapezius: BASAL CELL CARCINOMA, NODULAR TYPE (C44.519) Specimen C. SKIN, left scapula: BASAL CELL CARCINOMA, INFILTRATIVE PATTERN (C44.519) Specimen D. SKIN, left mid back: BASAL CELL CARCINOMA, INFILTRATIVE PATTERN (C44.519) 12:59 PM [facility]ERMAT[facility] at [address] Clinical History A: BCCA vs. SCCA. Path# [id number] B: BCCA vs. SCCA. Path# [id number] C: BCCA vs. SCCA. Path# [id number] D: BCCA vs. SCCA. Path# [id number] 12:59 PM [facility]ERMAT[facility] Gross Description Specimen A: Received [...] shave biopsy measuring 7x6x1 mm. Jar 0. 12:59 PM [facility]ERMATOPATH[facility]Y [facility] Microscopic Description Specimen A. SKIN, [...] that infiltrate the dermis. 4 12:59 PM [facility] Disclaimer An external and internal positive and negative controls are appropriate for the histochemical, immunohistochemical and immunofluorescence stain(s) in this case (if any), except where stated explicitly. The performance characteristics of the stain(s) cited in this report were developed and its performance characteristic determined by the Dermatopathology Laboratory at [facility], directed by Dr. Fabrizio Tang. These tests need not be, and therefore are not, approved by the [place] Food and Drug Administration. The tests are used for clinical purposes. Billing Codes Specimen Charges Stain Charges 45334 80272 69185 33315 1 1 1 1 4 12:59 PM [facility] Embedded Images 4 12:59 PM [facility] Pathology/Cytology TISSUE SPECIMEN FROM SKIN / Unknown 10/13/2023 10/14/2023 3:27 PM PIECE DYER Miscellaneous samples (specimen) TISSUE SPECIMEN FROM SKIN / Unknown 10/13/2023 10/14/2023 3:27 PM PIECE DYER Miscellaneous samples (specimen) TISSUE SPECIMEN FROM SKIN / Unknown 10/13/2023 10/14/2023 3:27 PM PIECE DYER Miscellaneous samples (specimen) TISSUE SPECIMEN FROM SKIN / Unknown 10/13/2023 10/14/2023 3:27 PM PIECE DYER Chadd Maddox MD LAB - PATHOLOGY/CYTOLOGY ORDER THAIS Final Result DERMATOPATHOLOGY LABORATORY [facility] - Department of Dermatology [facility] Medicine [address] [place] [address], 3rd [place] [address], [facility] [phone] documented in this encounter Visit Diagnoses Not on filedocumented in this encounter
--- OUTSIDE RECORDS SUMMARY | 2025-06-06 14:11 | XMS_ITS | Clinical Summary ---
Author Organization [facility] Address [address] [place] [address] Care Team Providers Care Customer Relations Representative Name Role Phone Unavailable Primary Care Provider Unavailabl e Source Comments [facility],non-owned Affiliates and Associated Physician Practices is amultiple site organization consisting of ambulatory clinics and hospital sitesin [place], [place], [place] and [place]. This disclosure is being madepursuant to the Care Everywhere program and may not contain all information available regarding this patient. 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
--- OUTSIDE RECORDS SUMMARY | 2025-06-06 14:11 | XMS_ITS ---
Author Organization [facility] Address [address] [place] [address] Care Team Providers Care Security Systems Administrator Name Role Phone Herb Brownlee DO Primary Care Provider +1- [phone] Pablito Tejada MD Unavailable [phone] Active Problems Problem Noted Date Diagnosed Date [...] (08/09/2019): Added automatically from request for surgery [id number] Nausea 05/06/2019 Overview (05/06/2019): Added automatically from request for surgery [id number] Diarrhea 05/06/2019 Overview (05/06/2019): Added automatically from request for surgery [id number] Routine cancer follow-up visit 09/16/2017 Atrophic vulvitis [...]
--- OUTSIDE RECORDS SUMMARY | 2025-06-06 14:11 | XMS_ITS | Encounter Summary ---
Author Organization [facility] Address [address] [place] [address] Phone Care Team Providers Care Customer Complaint Clerk Name Role Phone Herb Brownlee DO Primary Care Provider +1- [phone] Pablito Tejada MD Unavailable [phone] Encounter Details Date Type Department Care Team (Late st Contact Info) Description 06/16/2023 Treatment [facility] [address] [facility] Medical Office Building [address] [place] [address] Everette Courtney MD [facility] [address] Social History Tobacco Use Types [...] on file 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
--- OUTSIDE RECORDS SUMMARY | 2025-06-06 14:11 | XMS_ITS | Clinical Summary ---
Author Organization [facility] Healthcare Address [address] [place] [address] Care Team Providers Care Heating Unit Installer Name Role Phone Herb Brownlee DO Primary Care Provider +1- [phone] Pablito Tejada MD Unavailable [phone] Allergies Active Allergy Reactions Criticality Noted Date [...] 1 tablet (75 mcg total) by mouth hardware installation coordinator before breakfast Active metFORMIN (GLUCOPHAGE) 500 mg [...] Accu-Chek Compact Plus Test Strips Active lancets [facility] Accu-Chek Fastclix Lancet Drum Active blood-glucose meter (Accu-Chek Oliev) [facility] Active albuterol HFA (PROVENTIL HFA,VENTOLIN HFA,PROAIR HFA) [...] (08/09/2019): Added automatically from request for surgery [id number] Nausea 05/06/2019 Overview (05/06/2019): Added automatically from request for surgery [id number] Diarrhea 05/06/2019 Overview (05/06/2019): Added automatically from request for surgery [id number] Routine cancer follow-up visit 09/16/2017 Atrophic vulvitis [...] on file Legal Sex Female 9: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 Gender Identity Not on file Sexual Orientation [...] Screening Discontinued Medical Devices Implanted Type Area Stone Mill Operator Device Identifier Shelf Expiration Date Model / Serial / Lot Hardware N/A: Back Medtronic Sofamor Danek [id number] Centerpiece 12mm Lateral Hole Open Door Color Coded Spine Plate - [id number] Implanted:Qty: 3 on 01/22/2021 by Nico [place] MD at [facility] N/A: Spine Cervical Medtronic Inc [id number] / / Medtronic Sofamor Danek [id number] Centerpiece 3mm 7mm Self Tap Stab Grab Color Coded Spine Screw - [id number] Implanted:Qty: 1 on 01/22/2021 by Nico [place] MD at [facility] N/A: Spine Cervical Medtronic Inc [id number] / / Medtronic Sofamor Danek [id number] Centerpiece 2.6mm 5mm Self Tap Stab Grab Color Coded Spine Screw - [id number] Implanted:Qty: 7 on 01/22/2021 by Nico [place] MD at [facility] N/A: Spine Cervical Medtronic Inc [id number] / / Medtronic Sofamor Danek [id number] Centerpiece 2.6mm 7mm Self Tap Stab Grab Color Coded Spine Screw - [id number] Implanted:Qty: 6 on 01/22/2021 by Nico [place] MD at [facility] N/A: Spine Cervical Medtronic Inc [id number] / / Medtronic Sofamor Danek [id number] Centerpiece Hinge Trough Spine Angle Small Plate Bone Titanium - [id number] Implanted:Qty: 1 on 01/22/2021 by Nico [place] MD at [facility] N/A: Spine Cervical Medtronic Inc [id number] / / Procedures Procedure Name Priority Date/Time [...] 11:40 AM CDT COLONOSCOPY 11/29/2019 7:24 AM 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 ALBUMIN / CREATININE URINE RATIO, RANDOM Routine [...] MD LAB BLOOD ORDERABLES Final Resu lt [facility] Department [place] [address] * Dexa TBS Axial Skeleton Bone Density 1 or more sites (01/12/2024 1:27 PM CDT) Anatomical Region Laterality Modality Wrist, Body N/A Radiographic Kourtney ging Narrative 01/12/2024 1:35 PM CDT Patient Name: Arely Welch Date of : 1950 Date of scan: 01/12/2024 Bone mineral density was performed on a HoloSpinal Restoration Discovery Densitometer. Based on machine cross-calibration and [...] by the International Society of Clinical Densitometry. [id number] Everette Courtney MD IMG DXA PROCEDURES Final [...] A1C, POC 6.7(H) 4.0 - 6.0 % [facility] Est Average Gluc POC 146 mg/dL [facility] Comment: The ADA recommends reporting an estimated Average Glucose (eAG) with all Hemoglobin A1c results using the equation derived from a study of 507 normal and diabetic adults. Minority populations were underrepresented and children were not included. (Diabetes Care 31:9387-6083, 2008). The eAG is not equivalent to a fasting glucose. Blood specimen (specimen) 01/11/2021 11:40 AM CDT 01/11/2021 11:40 AM CDT Nico [place] MD POINT OF CARE TEST O RDERABLES Final Result [facility] Department [place] [address] * COLONOSCOPY (11/29/2019 7:24 AM 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) Anatomical Region Laterality Modality Other Narrative Procedure Note Tabitha Dyson MD PhD - 11/29/2019 7:24 AM CST ENDOSCOPY LAB Patient Name: Arely Welch Procedure Date: 11/29/2019 7:24 AM Date of : 1950 Admit Type: Outpatient Age: 69 Gender: Female Attending MD: Tabitha Dyson MD,PHD Room: [facility] ENDOSCOPY ROOM 03 Note Status: Finalized Procedure: [...] Thescope was passed under direct vision. The [id number] introduced through the anus and advanced to the cecum, identified by appendiceal orifice and ileocecal valve.The colonoscopy was performed without difficulty. Thepatient tolerated the procedure well. The quality of the bowel preparation was excellent. The quality of the bowel preparation was evaluated using the BBPS ([place] Bowel Preparation Scale) with scores of: Right [...] 8:30 AM CDT) Microalbumin, ur 12.6 mcg/mL [facility] Creatinine, ur 31.30 mg/dL [facility] Microalbumin/c reat ratio 40.3(H) 0.1 - 29.9 mcg/mg Cr [facility] Urine 02/11/2017 8:30 AM CDT 02/11/2017 10:29 AM CDT us Nico Vergara MD LAB BLOOD BANK TEST ORDERAB LES Final Result [facility] Department [place] [address] from Last 3 Months or Most Recently Relevant to Health Maintenance Insurance [employer] MEDICARE O [employer] MEDICARE HMO [facility] MEDICARE HMO Advance Directives For more information, please contact: [phone] * Full Code (Latest Code Status on File) Date Activated Date Inactivated Comments 01/22/2021 6:19 PM 01/26/2021 3:27 PM * Full Code Date Activated Date Inactivated Comments 11/29/2019 7:05 AM 11/29/2019 2:13 PM * Full Code Date Activated Date Inactivated Comments 06/03/2019 10:51 AM 06/03/2019 5:16 PM Care Teams Heating Unit Installer Relationship Specialty Start Date End Date Herb Brownlee DO PCP - General 12/18/16 Pablito Tejada MD [address] [place] [address] Referring Physician Obstetrics and Gynecology 10/09/18
--- OUTSIDE RECORDS SUMMARY | 2025-06-06 14:11 | XMS_ITS | Encounter Summary ---
Author Organization [facility] Healthcare Address [address] [place] [address] Care Team Providers Care Test Inspection Engineer Name Role Phone Herb Brownlee DO Primary Care Provider [phone]- [phone] Pablito Tejada MD Unavailable [phone] Encounter Details Date Type Department Care Team (Late st Contact Info) Description 06/11/2023 Documentation [facility] [address] [place] [address] Deandra Pruitt, [address] [place] [address] Social History Tobacco Use Types Packs/Day Years [...] on file Legal 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
--- OUTSIDE RECORDS SUMMARY | 2025-06-06 14:11 | XMS_ITS | Encounter Summary ---
Author Organization [facility] Address [address] [place] [address] Phone Care Team Providers Care Program Development Manager Name Role Phone Herb Brownlee DO Primary Care Provider [phone]- [phone] Pablito Tejada MD Unavailable [phone] Encounter Details Date Type Department Care Team (Late st Contact Info) Description 01/20/2023 Treatment [facility] [address] [facility] [address] [place] [address] Everette Courtney MD [facility] [address] [address] Social History Tobacco Use Types [...] on file 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
--- OUTSIDE RECORDS SUMMARY | 2025-06-06 14:11 | XMS_ITS | Encounter Summary ---
Author Organization [facility] Address [address] [place] [address] Phone Care Team Providers Care Jinrikisha Driver Name Role Phone Herb Brownlee DO Primary Care Provider [phone] Pablito Tejada MD Unavailable [phone] Encounter Details Date Type Department Care Team (Late st Contact Info) Description 06/15/2023 Treatment [facility] [address] [facility] [address] [place] [address] Everette Courtney MD [facility] [address] Social History Tobacco Use Types [...] on file Legal 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 Female 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
[2025-06-06 15:08] LABS: Hematocrit 38.7 % (37.0-47.0); Hemoglobin 12.2 g/dL (12.0-15.0); Immature Granulocyte Percent A 0.4 % (0-0.5); Lymphocytes Absolute Auto 1.10 K/mm3 (0.9-3.2); Mean Corpuscular HGB Conc 31.5 g/dl (32-36); Mean Corpuscular Hemoglobin 32.1 pg (26-34); Mean Corpuscular Volume 101.8 fl (80-100); Nucleated Red Blood Cells Absolute Auto 0.000 K/mm3 (0.0-0.012); Nucleated Red Blood Cells Perc 0.0 % (0.0-0.2); Platelet Count Result 254 k/mm3 (150-375); Red Blood Count 3.80 M/mm3 (4.2-5.4); White Blood Count 7.6 K/mm3 (4.5-10.0)
[2025-06-06 15:17] LABS: Hemoglobin A1C 6.8 % (<5.7)
[2025-06-06 15:50] LABS: Alanine Aminotransferase 15 U/L (6-35); Albumin Level 4.6 g/dL (3.5-5.1); Alkaline Phosphatase 92 U/L (38-126); Anion Gap 11 mmol/L (4-12); Aspartate Amino Transferase 33 U/L (14-36); Bilirubin,Total 0.5 mg/dL (0.2-1.3); Blood Urea Nitrogen 30 mg/dL (7-17); Calcium 10.1 mg/dL (8.4-10.2); Carbon Dioxide 27 mmol/L (22-30); Chloride 96 mmol/L (98-107); Cholesterol 147 mg/dL (0-200); Estimated Glomerular Filt Rate 52; Glucose 118 mg/dL (65-110); HDL Direct 35 mg/dL; Potassium 5.4 mmol/L (3.4-5.0); Sodium 134 mmol/L (137-145); Total Protein 8.1 g/dL (6.3-8.2); Triglycerides 344 mg/dL (<150)
== END 2025-06-06 14:07 | disposition home or self-care (01) ==
LOC: ANHLAB 14:08
PROVIDERS: PCP Nurse Practitioner; Visit Provider Nurse Practitioner
DX: E78.2 Mixed hyperlipidemia (principal); I10 Essential (primary) hypertension; E11.42 Type 2 diabetes mellitus with diabetic polyneuropathy
CPT/HCPCS: 36415; 80053; 80061; 83036; 85025

== ENCOUNTER 2025-06-08 02:19 | Day surgery (SDC) | payer MEDICARE, SELFPAY ==
[2025-05-23 13:08] VITALS: BMI 29.9
[2025-05-23 13:21] VITALS: BP 122/54; PULSE 76; RESP 16; TEMP 36.2; O2SAT 98
--- NOTE | 2025-05-23 13:24 | PC.NURSE ---
Report to the Outpatient Waiting Room, entrance under the green pavilion located off [facility], at time _06:00am on date __06/08/25 . Planned Procedure Time: __07:30am .? Time changes happen often and if your time is changed the preop area will call you the afternoon before. - You and your visitor will be asked to self-screen and do not enter if you have any COVID symptoms. Please call surgeon if you need to reschedule. - A mask is optional within the hospital at this time. Patients may have clear liquids (water, carbonated beverages, clear teas, apple juice) until 3 hours prior to surgery with a maximum of 20 ounces. - No food from midnight until time of surgery and no smoking, or chewing tobacco (or any form of nicotine). No chewing gum, candy or mints. (0430am) Take only the following medications with a SIP of water on the morning of surgery: Gabapentin, Levothyroxine, Tylenol if needed DO NOT STOP ANY OF YOUR OTHER PRESCRIPTION MEDICATIONS PRIOR TO SURGERY EXCEPT THE FOLLOWING Hold all vitamins and supplements for 3 days per anesthesiologist. Medications to discontinue per physician Advil for [address] Morales Date to take last dose 05/30/25 Please no make-up, nail cypriot, hairspray, perfume, deodorant, or body powder the day of surgery.? No jewelry (including any body piercings) or valuables the day of surgery, leave them at home.? Please take a shower or bath the night before, or the morning of, surgery with an antibacterial soap. Hibicleanse scrub ? Wear comfortable, loose fitting clothing.? Overnight bag and walker, tennis shoes . - Jewelry must be removed prior to entering the operating room.? Rings and piercings that are not removed may be cut off. - The hospital will not accept responsibility for valuables.? - Please leave all valuables, including medications, at home the day of surgery. If you are going home after surgery, a licensed straddle truck driver must drive you home.? - NO public transportation without another adult if you receive anesthesia. - We recommend that an adult stay with you for 24 hours following discharge. - We also recommend that you do not drive, make important decision, drink alcoholic beverages, or take any drugs that were not prescribed by your health care provider for at least 24 hours after your discharge time. Follow any additional instructions given to you from your surgeon. Telephone instructions given to __Patient & and asked if any additional questions and then verbalized understanding. Patient advised to call surgeon office or pre surgery nurse liaison [phone] if any additional questions.
[2025-06-08] VITALS (17 sets, daily range): BP systolic 125–190; BP diastolic 55–85; PULSE 75–89; RESP 10–18; TEMP 35.7–37; O2SAT 69–99
--- NOTE | ~2025-06-08 | XR_ITS ---
EXAMINATION: [id number] DATE: 06/08/2025 09:48 INDICATION: Postoperative evaluation following right total knee arthroplasty. TECHNIQUE: Anteroposterior and lateral views of the right knee were obtained. COMPARISON: None. FINDINGS: Right total knee arthroplasty without patellar resurfacing appears well seated and in near anatomic alignment. No acute fractures identified. Suggestion of an old healed fracture the proximal right fibula. Expected postoperative subcutaneous, intramedullary and intra-articular gas. IMPRESSION: 1. Right total knee arthroplasty, negative for postoperative purposes. Reviewed, dictated and finalized at location A.
--- OUTSIDE RECORDS SUMMARY | 2025-06-08 02:22 | XMS_ITS | Encounter Summary ---
Author Organization [facility] Healthcare Address [address] [place] [address] Care Team Providers Care Checker Product Design Name Role Phone Herb Brownlee DO Primary Care Provider [phone]- [phone] Pablito Tejada MD Unavailable [phone] Encounter Details Date Type Department Care Team (Late st Contact Info) Description 06/11/2023 Documentation [facility] [address] [place] [address] Deandra Pruitt, LAVON[address] [place] [address] Social History Tobacco Use Types Packs/Day Years [...] on file 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
--- OUTSIDE RECORDS SUMMARY | 2025-06-08 02:22 | XMS_ITS | Encounter Summary ---
Author Organization [facility] Address [address] [place] [address] Phone Care Team Providers Care Escrow Secretary Name Role Phone Herb Brownlee DO Primary Care Provider [phone]- [phone] Pablito Tejada MD Unavailable [phone] Encounter Details Date Type Department Care Team (Late st Contact Info) Description 06/15/2023 Treatment [facility] [address] [facility] Medical Office Building [address] [place] [address] Everette Courtney MD [facility] [address] Social History Tobacco Use Types [...] on file 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
--- OUTSIDE RECORDS SUMMARY | 2025-06-08 02:24 | XMS_ITS | Encounter Summary ---
Author Organization [facility] Address [address] [place] [address] Phone Care Team Providers Care Rhinologist Name Role Phone Herb Brownlee DO Primary Care Provider [phone]- [phone] Pablito Tejada MD Unavailable [phone] Encounter Details Date Type Department Care Team (Late st Contact Info) Description 01/20/2023 Treatment [facility] Bone Health [address] [facility] Medical Office Building [address] [place] [address] Everette Courtney MD [facility] [address] Social History Tobacco Use Types [...] on file 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
--- OUTSIDE RECORDS SUMMARY | 2025-06-08 02:24 | XMS_ITS ---
Author Organization [facility] Healthcare Address [address] [place] [address] Care Team Providers Care Investigative Research Specialist Name Role Phone Herb Brownlee DO Primary Care Provider [phone] Pablito Tejada MD Unavailable [phone] Active Problems Problem Noted Date Diagnosed Date [...] (08/09/2019): Added automatically from request for surgery [id number] Nausea 05/06/2019 Overview (05/06/2019): Added automatically from request for surgery [id number] Diarrhea 05/06/2019 Overview (05/06/2019): Added automatically from request for surgery [id number] Routine cancer follow-up visit 09/16/2017 Atrophic vulvitis [...]
--- OUTSIDE RECORDS SUMMARY | 2025-06-08 02:24 | XMS_ITS | Clinical Summary ---
Author Organization [facility] Healthcare Address [address] [place] [address] Care Team Providers Care Blade Grader Operator Name Role Phone Herb Brownlee DO Primary Care Provider [phone] Pablito Tejada MD Unavailable [phone] Allergies Active Allergy Reactions Criticality Noted Date [...] 1 tablet (75 mcg total) by mouth [facility] before breakfast Active metFORMIN (GLUCOPHAGE) 500 mg [...] Accu-Chek Compact Plus Test Strips Active lancets [facility] Accu-Chek Fastclix Lancet Drum Active blood-glucose meter (Accu-Chek Olive) [facility] Active albuterol HFA (PROVENTIL HFA,VENTOLIN HFA,PROAIR HFA) [...] (08/09/2019): Added automatically from request for surgery [id number] Nausea 05/06/2019 Overview (05/06/2019): Added automatically from request for surgery [id number] Diarrhea 05/06/2019 Overview (05/06/2019): Added automatically from request for surgery [id number] Routine cancer follow-up visit 09/16/2017 Atrophic vulvitis [...] on file Legal Sex 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 Gender Identity Not on file Sexual Orientation [...] Screening Discontinued Medical Devices Implanted Type Area Human Resource Adviser Device Identifier Shelf Expiration Date Model / Serial / Lot Hardware N/A: Back Medtronic Sofamor Danek [id number] Centerpiece 12mm Lateral Hole Open Door Color Coded Spine Plate - [id number] Implanted:Qty: 3 on 01/22/2021 by Nico Moore MD at [facility] N/A: Spine Cervical Medtronic Inc [id number] / / Medtronic Sofamor Danek [id number] Centerpiece 3mm 7mm Self Tap Stab Grab Color Coded Spine Screw - [id number] Implanted:Qty: 1 on 01/22/2021 by Nico Moore MD at [facility] N/A: Spine Cervical Medtronic Inc [id number] / / Medtronic Sofamor Danek [id number] Centerpiece 2.6mm 5mm Self Tap Stab Grab Color Coded Spine Screw - [id number] Implanted:Qty: 7 on 01/22/2021 by Nico Moore MD at [facility] N/A: Spine Cervical Medtronic Inc [id number] / / Medtronic Sofamor Danek [id number] Centerpiece 2.6mm 7mm Self Tap Stab Grab Color Coded Spine Screw - [id number] Implanted:Qty: 6 on 01/22/2021 by Nico Moore MD at [facility] N/A: Spine Cervical Medtronic Inc [id number] / / Medtronic Sofamor Danek [id number] Centerpiece Hinge Trough Spine Angle Small Plate Bone Titanium - [id number] Implanted:Qty: 1 on 01/22/2021 by Nico Moore MD at [facility] N/A: Spine Cervical Medtronic Inc [id number] / / Procedures Procedure Name Priority Date/Time [...] 11:40 AM CDT COLONOSCOPY 11/29/2019 7:24 AM CARPENTRY PROFESSIONAL ALBUMIN / CREATININE URINE RATIO, RANDOM Routine [...] MD LAB BLOOD ORDERABLES Final Resu lt [facility] Department [place] [address] * Dexa TBS Axial Skeleton Bone Density 1 or more sites (01/12/2024 1:27 PM CDT) Anatomical Region Laterality Modality Wrist, Body N/A Radiographic Kourtney ging Narrative 01/12/2024 1:35 PM CDT Patient Name: Arely Welch Date of : 1950 Date of scan: 01/12/2024 Bone mineral density was performed on a HoloInhibitex Discovery Densitometer. Based on machine cross-calibration and [...] by the International Society of Clinical Densitometry. [id number] Everette Courtney MD IMG DXA PROCEDURES Final [...] A1C, POC 6.7(H) 4.0 - 6.0 % [facility] Est Average Gluc POC 146 mg/dL [facility] Comment: The ADA recommends reporting an estimated Average Glucose (eAG) with all Hemoglobin A1c results using the equation derived from a study of 507 normal and diabetic adults. Minority populations were underrepresented and children were not included. (Diabetes Care 31:0115-6551, 2008). The eAG is not equivalent to a fasting glucose. Blood specimen (specimen) 01/11/2021 11:40 AM CDT 01/11/2021 11:40 AM CDT Nico Moore MD POINT OF CARE TEST O RDERABLES Final Result [facility] Department [place] Laboratories [place] [address] * COLONOSCOPY (11/29/2019 7:24 AM CARPENTRY PROFESSIONAL) Anatomical Region Laterality Modality Other Narrative Procedure Note Tabitha Dyson MD PhD - 11/29/2019 7:24 AM CST ENDOSCOPY LAB Patient Name: Arely Welch Procedure Date: 11/29/2019 7:24 AM Date of : 1950 Admit Type: Outpatient Age: 69 Gender: Female Attending MD: Tabitha Dyson MD,PHD Room: [facility] ENDOSCOPY ROOM 03 Note Status: Finalized [...] Thescope was passed under direct vision. The [id number] introduced through the anus and advanced to the cecum, identified by appendiceal orifice and ileocecal valve.The colonoscopy was performed without difficulty. Thepatient tolerated the procedure well. The quality of the bowel preparation was excellent. The quality of the bowel preparation was evaluated using the BBPS ([place] Bowel Preparation Scale) with scores of: Right [...] 8:30 AM CDT) Microalbumin, ur 12.6 mcg/mL [facility] Creatinine, ur 31.30 mg/dL [facility] Microalbumin/c reat ratio 40.3(H) 0.1 - 29.9 mcg/mg Cr [facility] Urine 02/11/2017 8:30 AM CDT 02/11/2017 10:29 AM CDT us Nico Vergara MD LAB BLOOD BANK TEST ORDERAB LES Final Result [facility] [place] [address] from Last 3 Months or Most Recently Relevant to Health Maintenance Insurance [employer] MEDICARE O [employer] MEDICARE HMO [facility] MEDICARE HMO Advance Directives For more information, please contact: [phone] * Full Code (Latest Code Status on File) Date Activated Date Inactivated Comments 01/22/2021 6:19 PM 01/26/2021 3:27 PM * Full Code Date Activated Date Inactivated Comments 11/29/2019 7:05 AM 11/29/2019 2:13 PM * Full Code Date Activated Date Inactivated Comments 06/03/2019 10:51 AM 06/03/2019 5:16 PM Care Teams Blade Grader Operator Relationship Specialty Start Date End Date Herb Brownlee DO PCP - General 12/18/16 Pablito Tejada MD [address] [place] [address] Referring Physician Obstetrics and Gynecology 10/09/18
--- OUTSIDE RECORDS SUMMARY | 2025-06-08 02:24 | XMS_ITS | Encounter Summary ---
Author Organization [facility] Address [address] [place] [address] Phone Care Team Providers Care Private Duty Lpn Name Role Phone Herb Brownlee DO Primary Care Provider [phone]- [phone] Pablito Tejada MD Unavailable [phone] Encounter Details Date Type Department Care Team (Late st Contact Info) Description 06/16/2023 Treatment [facility] Bone Health 10 [facility] Medical Office Building [address] [place] [address] Everette Courtney MD [facility] [address] Social History Tobacco Use Types [...] on file 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
[2025-06-08] MEDS: ACETAMINOPHEN 500 MG TABLET 1000 MG PO (07:00)
[2025-06-08] MEDS: TRANEXAMIC ACID 1,000MG/ISO100 1,000 MG/100 ML BAG 200 MG IVPB (07:00)
[2025-06-08] MEDS: LACTATED RINGERS 1,000 ML 30 ML IV CONT (07:00)
--- NOTE | 2025-06-08 07:18 | WPDHPUPDATE1 ---
History and Physical Update Update Date/Time: 06/08/25 07:18 History and Physical has been reviewed, including an updated exam of the patient. There are NO changes in the patient's condition. Risks, benefits, and alternatives have been discussed and questions answered. Patient agrees to proceed with procedure.
--- NOTE | 2025-06-08 07:18 | WPDANESEPPF ---
Anes - Initial Pre Proc Eval Procedure: Operation Date: 06/08/25 07:30 Proposed Procedures p Right Total Knee Arthroplasty - Scotty Morales MD Date/Time: 06/08/25 07:18 Surgeon: Scotty Morales MD Pre Op Diagnosis: right knee djd Patient Data Age: 75 Gender: F Height: 1.63 m Weight: 79.2 kg Last Vital Signs Temp 36.2 C L 05/23/25 13:21 Pulse 76 05/23/25 13:21 Resp 16 05/23/25 13:21 BP 122/54 L 05/23/25 13:21 Pulse Ox 98 05/23/25 13:21 O2 Del Method Room Air 05/23/25 13:21 Allergies Allergy/AdvReac Type Severity Reaction Status Date / Time codeine Allergy Dry Heaves Verified 05/23/25 13:03 tramadol AdvReac Intermediate Nausea Verified 05/23/25 13:03 Home Medications ?Medication ?Instructions ?Recorded ?Confirmed ?Type lancets (Accu-Chek Softclix #102 ea 01/24/22 05/23/25 Rx Lancets) fluticasone propionate 50 See Rx Instructions .Route 03/11/22 05/23/25 Rx mcg/actuation nasal .COMPLEX #48 grams spray,suspension blood sugar diagnostic (Accu-Chek #100 ea 11/11/24 05/23/25 Rx SmartView Test Strips) gabapentin 300 mg capsule See Rx Instructions .Route 11/25/24 05/23/25 Rx .COMPLEX #810 caps levothyroxine 75 mcg tablet See Rx Instructions .Route 02/03/25 05/23/25 Rx .COMPLEX #90 tabs metformin 500 mg tablet See Rx Instructions .Route 03/02/25 05/23/25 Rx .COMPLEX #360 tabs furosemide 40 mg tablet See Rx Instructions .Route 04/22/25 05/23/25 Rx .COMPLEX #90 tabs simvastatin 20 mg tablet See Rx Instructions .Route 05/02/25 05/23/25 Rx .COMPLEX #90 tabs ibuprofen 200 mg tablet (Advil) 400 mg PO ONCE PRN pain 05/23/25 05/23/25 History allopurinol 300 mg tablet 300 mg PO DAILY #90 tabs 05/27/25 Rx chlorhexidine gluconate 4 % 1 applic topical ONCE #237 mL 06/01/25 Rx topical liquid (Hibiclens) Laboratory Tests 06/08/25 06/08/25 06:49 06:53 POC Capillary Glucose 152 H mg/dl (65-105) Blood Type Pending Antibody Screen Pending Patient hx anesthesia problems: none Family hx anesthesia problems: none Results Review: All pre-operative results and documents have been reviewed as part of the pre-operative evaluation. [facility] Past Medical History Medical History Valgus deformity, not elsewhere classified, left knee Degenerative joint disease of knee Right knee pain Colon polyp Calcification of mitral valve Broken leg Left fibula Claustrophobia Insomnia Hypothyroidism Abnormal mammogram Tear of left rotator cuff Acid reflux Sarcoidosis Uterine cancer Bilateral cataracts Chicken pox HLD (hyperlipidemia) Measles Osteoarthritis CKD (chronic kidney disease) Type 2 diabetes mellitus with diabetic polyneuropathy, without long-term current use of insulin Surgical History Surgical History History of cervical spinal surgery History of hysterectomy History of foot surgery History of back surgery C-spine surgery, T12-L5 fusion Family History Family History Mother Patient's mother is Father Family history of emphysema Family history of coronary artery disease Social History Social History Smoking packs per day: 2 Smoking cigarettes per day: 40.0 Years smoked: 30 Smoking pack-years: 60.00 Smoking status: Former smoker Tobacco type: cigarettes Second hand tobacco smoke exposure: No Smoking end date: 09/29/78 Alcohol intake: current Alcohol use details: 2 per month Substance use: never Substance use type: does not use Lack of Transportation: No Lack of Food: Never True Current Housing: I Have Housing Concerned About Future Housing: No Difficulty Paying Gas/Electric Bills: No Difficulty Paying for Meds: No Currently Unemployed: No Education: High School Diploma/GED Difficulty w/ Childcare or Family Care: No Living arrangements: with family Additional living arrangements comments: Occupation/Education: retired Gender identity (if verbalized by the patient): Female Sexual Orientation (if Verbalized by the Patient): Straight or Heterosexual Spiritual care concerns: No Anes - Eval Final PreProcedure Day of Procedure 06/08/25 07:18 Patient weight: obese Heart: regular rate and rhythm Lungs: decreased breath sounds Airway: Mallampati scale class II Neurological: alert and oriented Last oral intake: >/= 8 hours ASA classification: III Emergent: no Anesthetic plan: proceed Anesthesia type and monitoring: general LMA and standard monitoring Results Review: All pre-operative results and documents have been reviewed as part of the pre-operative evaluation. Informed Consent: The patient's anesthetic plan and its attendant risks and benefits were discussed with the patient/family/POA. Questions were solicited and answers provided to the satisfaction of the patient/family/POA.
[2025-06-08] MEDS: ceFAZolin 2 GM in SODIUM CHLORIDE 0.9% IV 50 ML 100 ML IVPB ×2 (07:28→16:27)
[2025-06-08] MEDS: SODIUM CHLORIDE 0.9% IV 37.7 ML, MORPHINE SULFATE INJ (*CRX) 2 MG, ROPivacaine HCL 1% 2... INFILTRATE (07:30)
[2025-06-08] MEDS: TRANEXAMIC ACID 1,000 MG/10 ML AMPUL 1000 MG IV PUSH (09:00)
--- NOTE | 2025-06-08 09:40 | W.PM.PROC2 ---
Procedure Note - Detailed Date of Procedure 06/08/25 Pre-op Diagnosis right knee djd Post-op Diagnosis Same Procedure Performed R TKA Surgeon Scotty Morales MD Anesthesia General Description of Procedure THE RIGHT KNEE WAS PREPPED AND DRAPED IN THE STERILE FASHION. THERE WAS A 10 DEGREE FLEXION CONTRACTURE. A MIDLINE SKIN INCISION WAS MADE. A MEDIAL PARAPATELLAR ARTHROTOMY WAS MADE. THE PATELLA WAS EVERTED. THERE WAS TRICOMPARTMENT DJD. AN INTRAMEDULLARY THEODORE WAS PLACED IN THE FEMUR. A DISTAL FEMORAL CUT WAS MADE IN 5 DEGREES OF VALGUS REMOVING APPROXIMATELY 9 MM OF BONE FROM THE DISTAL FEMUR. THE FEMUR WAS SIZED TO 62.5. A 62.5 FEMORAL CUTTING BLOCK WAS PLACED IN 3 DEGREES OF EXTERNAL ROTATION AND IN ALIGNMENT WITH CYNDY'S LINE AND THE TRANSEPICONDYLAR AXIS. ANTERIOR POSTERIOR AND CHAMFER CUTS WERE MADE. THE CUTS WERE EXCELLENT. NEXT AN INTRAMEDULLARY CUTTING GUIDE WAS PLACED IN THE TIBIA. A TRANS TIBIAL CUT WAS MADE ALONG THE LONG AXIS OF THE TIBIA. APPROXIMATELY 10 MM OF BONE WAS REMOVED FROM THE HIGH SIDE OF THE TIBIA. THE TIBIA WAS THEN PLANED TO A SMOOTH SURFACE. POSTERIOR FEMORAL OSTEOPHYTES WERE REMOVED FROM THE FEMORAL CONDYLES. A 67 TIBIAL TRIAL WAS PLACED IN ALIGNMENT WITH THE 1/3 MEDIAL ASPECT OF THE TIBIAL TUBERCLE. THEN A 62.5 FEMORAL TRIAL COMPONENT WAS PLACED. BOTH HAD EXCELLENT FITS. EVENTUALLY A 10 MM POLYETHYLENE TRIAL COMPONENT WAS PLACED. THE KNEE WAS TAKEN THROUGH A RANGE OF MOTION. THE KNEE CAME OUT TO FULL EXTENSION. THERE WAS NO ABNORMAL TILT TO THE PATELLA. THERE WAS GOOD A/P AND VARUS/VALGUS STABILITY. THERE WAS NO EXCESSIVE ROLL BACK WITH FLEXION. THE TRIAL COMPONENTS WERE REMOVED. THEN A 62.5 FEMORAL COMPONENT AND 67 TIBIAL COMPONENT WITH A 10 POLYETHYLENE COMPONENT WERE CEMENTED INTO PLACE. ONCE THE CEMENT WAS HARD THE KNEE WAS TAKEN THROUGH A ROM AGAIN AND FOUND TO BE STABLE WITH NO PATELLA TILT NO EXCESSIVE ROLL BACK WITH FLEXION AND GOOD STABILITY WITH COMPLETE AND FULL EXTENSION. THE KNEE WAS IRRIGATED WITH STERILE BETADINE AND WATER FOR ABOUT 3 MINUTES. THE BLEEDERS WERE CAUTERIZED. THE ARTHROTOMY WAS REPAIRED WITH NUMBER 1 VICRYL. THE SUB CUTANEOUS LAYER WITH 2-0 VICRYL AND THE SKIN WITH MORENITA. THE WOUND WAS WASHED AND A STERILE DRESSING WAS APPLIED. PATIENT WAS EXTUBATED. Estimated Blood Loss 50 Pathology None sent Complications No immediate complications Condition Stable Disposition PACU
--- NOTE | 2025-06-08 10:05 | WPDANESPNB ---
Anes - Peripheral Nerve Block Date/Time: 06/08/25 10:05 I have discussed with the patient/family/POA the placement of a peripheral nerve block for post-operative pain management, including associated risks, benefits, complications, and side effects. Alternative methods of post-operative analgesia were detailed. Questions were solicited and answers provided to the satisfaction of the patient/family/POA. Time-Out: A pre-procedural Time-Out was completed immediately before starting the procedure and confirmed: Patient Identification, Site, Procedure, Patient Position and the Availability of Requisite Equipment. Clinical Indications: Acute post-operative pain management requested by the operative surgeon. Nerve Block Insertion Note Anes-nerve block: adductor canal right Patient position: supine Skin prep: chlorhexidine Needle: 22 gauge, stimulating, insulated echogenic needle. Needle length: 80 mm Technique: ultrasound Technique comment: done in pacu Injectate: bupivacaine 0.5% with epi 5 mcg/ml (30ml no epi) Observations: tolerated well Complications: none Procedure start time:: 949 Procedure end time:: 956
[2025-06-08] MEDS: fentaNYL CITRATE INJ (*CRX) 100 MCG/2 ML VIAL 25 MCG IV PUSH ×3 (10:09→10:35)
--- NOTE | 2025-06-08 11:09 | ADMGEN ---
This patient, Arely Welch, was admitted to [facility] Surg Room 302-01. Patient/family oriented to hospital policies and general routines including ID bracelet, bed and alarms, visiting hours, pain management, procedures, bathroom and other care routines, personal items, smoking policy, room service/diet, and visiting hours. Information on how to activate the Rapid Response Team has been discussed. Patient/Family are encouraged to report perceived risks to care and to ask questions if they do not understand what they are told or what they should do.
[2025-06-08] MEDS: SODIUM CHLORIDE 0.9% IV 1,000 ML 125 ML IV CONT (11:26)
[2025-06-08] MEDS: ONDANSETRON INJ 4 MG/2 ML VIAL IV PUSH ×2 (11:42→21:51)
[2025-06-08] MEDS: GABAPENTIN 300 MG CAPSULE 900 MG BY MOUTH ×2 (11:42→16:26)
[2025-06-08] MEDS: FAMOTIDINE 20 MG TABLET PO ×2 (11:42→20:23)
[2025-06-08] MEDS: FUROSEMIDE 40 MG TABLET BY MOUTH (11:42)
[2025-06-08] MEDS: ASPIRIN 325 MG ENTERIC TABLET PO ×2 (11:43→20:23)
[2025-06-08] MEDS: CELECOXIB 200 MG CAPSULE PO ×2 (11:43→16:26)
[2025-06-08] MEDS: SENNA/DOCUSATE SODIUM TABLET 2 TAB PO ×2 (11:43→16:26)
[2025-06-08] MEDS: FLUTICASONE PROPIONATE 0.05% NA SPR 16 GM BTL (*BKC) 1 SPRAY NASAL (16:26)
[2025-06-08] MEDS: oxyCODONE/ACETAMINOPHEN (*CRX) 10-325 MG TABLET 1 TAB PO (23:57)
[2025-06-09] MEDS: ceFAZolin 2 GM in SODIUM CHLORIDE 0.9% IV 50 ML 100 ML IVPB ×2 (00:06→09:02)
[2025-06-09 00:36] VITALS: BP 128/65; PULSE 78; RESP 16; TEMP 37; O2SAT 96
[2025-06-09 04:36] VITALS: BP 133/59; PULSE 84; RESP 18; TEMP 36.8; O2SAT 96
[2025-06-09] MEDS: LEVOTHYROXINE SODIUM 75 MCG TABLET BY MOUTH (05:33)
[2025-06-09 06:23] LABS: Hematocrit 28.7 % (37.0-47.0); Hemoglobin 8.9 g/dL (12.0-15.0); Immature Granulocyte Percent A 0.5 % (0-0.5); Lymphocytes Absolute Auto 0.77 K/mm3 (0.9-3.2); Mean Corpuscular HGB Conc 31.0 g/dl (32-36); Mean Corpuscular Hemoglobin 32.2 pg (26-34); Mean Corpuscular Volume 104.0 fl (80-100); Nucleated Red Blood Cells Absolute Auto 0.000 K/mm3 (0.0-0.012); Nucleated Red Blood Cells Perc 0.0 % (0.0-0.2); Platelet Count Result 184 k/mm3 (150-375); Red Blood Count 2.76 M/mm3 (4.2-5.4); White Blood Count 11.6 K/mm3 (4.5-10.0)
[2025-06-09 06:45] LABS: Blood Urea Nitrogen 26 mg/dL (7-17); Calcium 7.9 mg/dL (8.4-10.2); Carbon Dioxide 26 mmol/L (22-30); Chloride 101 mmol/L (98-107); Estimated CRCL calculation 38 ml/min; Estimated Glomerular Filt Rate 48; Glucose 159 mg/dL (65-110); Potassium 4.5 mmol/L (3.4-5.0)
[2025-06-09 06:51] LABS: Anion Gap 8 mmol/L (4-12); Sodium 135 mmol/L (137-145)
[2025-06-09 08:00] VITALS: BP 140/73; PULSE 80; RESP 18; TEMP 36.6; O2SAT 97
[2025-06-09] MEDS: FUROSEMIDE 40 MG TABLET BY MOUTH (09:01)
[2025-06-09] MEDS: SENNA/DOCUSATE SODIUM TABLET 2 TAB PO (09:01)
[2025-06-09] MEDS: FAMOTIDINE 20 MG TABLET PO (09:01)
[2025-06-09] MEDS: CELECOXIB 200 MG CAPSULE PO (09:01)
[2025-06-09] MEDS: GABAPENTIN 300 MG CAPSULE 900 MG BY MOUTH ×2 (09:01→12:15)
[2025-06-09] MEDS: SIMVASTATIN 20 MG TABLET BY MOUTH (09:02)
[2025-06-09] MEDS: ASPIRIN 325 MG ENTERIC TABLET PO (09:02)
[2025-06-09] MEDS: oxyCODONE/ACETAMINOPHEN (*CRX) 10-325 MG TABLET 1 TAB PO (09:02)
--- NOTE | 2025-06-09 09:31 | P.PNOP_ITS ---
Progress Note: A&P Assessment and Plan (1) S/P total knee arthroplasty: Qualifiers: Laterality: right Qualified Code(s): Z96.651 - Presence of right artificial knee joint Code(s): Z96.659 - Presence of unspecified artificial knee joint Status: Acute Assessment and Plan: POD #1 : Right TKA Continue PT/OT. WBAT. Walker. HIGH FALL RISK. Continue pain control. Ice Knee. Protect skin. DVT prophylaxis with Aspirin. SCDs. Incentive Spirometry Use reviewed. Monitor Dressing. Change prior to discharge. Bowel Regimen. Dispo: Home with Home Health pending progress with PT/OT Time Spent With Patient Time: Reviewed history, exam, radiographs and current labs with attending MD and covering surgeon, Dr. Morales, who agrees with current plan as indicated above. No further recommendations from Dr. Morales at this time. Subjective Subjective Date/Time Seen: 06/09/25 09:31 Post Op day: 1 Interval history: POD#1: Right TKA Patient doing very well. Worked well with PT this morning. PT okay for d/c. Awaiting OT evaluation. Pain well controlled. No new concenrs. Patient and also hopeful for d/c today. Review of Systems Review of Systems: All systems reviewed & are unremarkable except as noted in HPI and below Constitutional: Constitutional: Denies fever(s) and Denies headache(s) ENT: Denies headache(s) Cardiovascular: Cardiovascular: Denies chest pain, Denies diaphoresis, Denies palpitations and Denies dyspnea Respiratory: Respiratory: Denies dyspnea Gastrointestinal: Gastrointestinal: Denies abdominal pain, Denies constipation, Denies nausea and Denies vomiting Genitourinary: Genitourinary: Reports nocturia and Denies dysuria Musculoskeletal: Musculoskeletal: Reports arthralgias (Right Knee ) and Reports joint swelling (Right Knee ) Neurologic: Denies headache(s) Endocrine: Endocrine: Denies palpitations Exam Const: General: comfortable and no acute distress Resp: Effort & Inspection: normal respiratory effort Cardio: Rate: regular rate Rhythm: regular rhythm GI: GI Palp: Yes Soft to palpation, No Tenderness to palpation present (GI) and No Guarding due to palpation present (GI) Skin: General skin exam: wounds noted Wounds: wounds noted Other: Incision c/d/i. No surrounding redness/warmth. No hematoma. Mild ecchymosis. No wound dehiscence Neuro: Cognition (Neuro): normal cognition Other: NV intact aside from block. Moves toes. Sensation intact to light touch. +ankle dorsiflexion/plantarflexion. Extrem: Right lower extremity: normal to inspection, knee Details: tenderness (diffuse, mild ) Location: of the patella, swelling (diffuse, consistent with surgical intervention ), abnormal ROM Details: pain with active ROM during, pain with passive ROM during and with range as follows (limited due to recent surgical intervention ); able to extend lower leg actively and ecchymosis (mild ), lower leg (Negative Gina's Sign ) Details: normal to inspection; no erythema and no tenderness, ankle (+ankle dorsiflexion/plantarflexion ) Details: normal to inspection, no edema and normal ROM; no tenderness, no swelling and no ecchymosis and foot Details: normal capillary refill, normal to inspection, vascular exam Details: dorsalis pedis pulse present and motor-sensory exam Details: light-touch normal; no tenderness Left lower extremity: normal to inspection Psych: Mental Status: mental status grossly normal Objective Data Vital Signs Vital Signs: Vital Signs - 24 hr 06/08/25 09:37 06/08/25 09:50 06/08/25 10:00 Temperature 36.6 C Pulse Rate 82 89 88 Respiratory Rate 10 L 12 12 Blood Pressure 157/69 H 190/68 H 180/61 H Pulse Oximetry 99 99 99 Oxygen Delivery Simple Face Mask Simple Face Mask Simple Face Mask Oxygen Flow Rate 6 6 6 06/08/25 10:03 06/08/25 10:08 06/08/25 10:15 Temperature Pulse Rate 87 Respiratory Rate 16 Blood Pressure 180/75 H Pulse Oximetry 89 L 96 Oxygen Delivery Room Air Nasal Cannula Nasal Cannula Oxygen Flow Rate 2 2 06/08/25 10:17 06/08/25 10:30 06/08/25 10:35 Temperature Pulse Rate 87 79 79 Respiratory Rate 14 Blood Pressure 180/77 H Pulse Oximetry 96 Oxygen Delivery Nasal Cannula Oxygen Flow Rate 2 06/08/25 10:45 06/08/25 11:20 06/08/25 11:35 Temperature 36.7 C 35.7 C L 35.7 C L Pulse Rate 75 80 75 Respiratory Rate 16 16 16 Blood Pressure 166/85 H 173/69 H 164/61 H Pulse Oximetry 96 69 L 95 Oxygen Delivery Nasal Cannula Oxygen Flow Rate 2 06/08/25 12:07 06/08/25 12:21 06/08/25 13:55 Temperature 35.7 C L Pulse Rate 83 Respiratory Rate 18 Blood Pressure 153/55 H Pulse Oximetry 96 92 Oxygen Delivery Room Air Room Air Oxygen Flow Rate 06/08/25 14:26 06/08/25 16:36 06/08/25 20:07 Temperature Pulse Rate 85 Respiratory Rate 18 Blood Pressure 155/61 H Pulse Oximetry 95 97 Oxygen Delivery Room Air Room Air Oxygen Flow Rate 06/08/25 20:23 06/08/25 20:36 06/09/25 00:36 Temperature 37.0 C 37.0 C Pulse Rate 80 78 Respiratory Rate 16 16 Blood Pressure 125/62 128/65 Pulse Oximetry 97 96 Oxygen Delivery Room Air Oxygen Flow Rate 06/09/25 04:36 06/09/25 08:00 Temperature 36.8 C 36.6 C Pulse Rate 84 8 L Respiratory Rate 18 18 Blood Pressure 133/59 L 140/73 Pulse Oximetry 96 97 Oxygen Delivery Oxygen Flow Rate Intake/Output Intake/Output: Intake & Output 06/06/25 06/07/25 06/08/25 06/09/25 23:59 23:59 23:59 23:59 Intake Total 640 300 Balance 640 300 Meds/Results Medications: Active Medications Generic Name Dose Route Start Last Admin Trade Name Freq PRN Reason Stop Dose Admin Acetaminophen 500 mg 06/08/25 10:51 Acetaminophen 500 Mg Tablet PO Q6H PRN Pain Rated 1-3 Aspirin 325 mg 06/08/25 10:51 06/09/25 09:02 Aspirin 325 Mg Enteric Tablet PO 325 mg Q12HR ROSEANNA Administration Celecoxib 200 mg 06/08/25 10:51 06/09/25 09:01 Celecoxib 200 Mg Capsule PO 200 mg BIDWM ROSEANNA Administration Diazepam 5 mg 06/08/25 10:51 Diazepam (*Crx) 5 Mg Tablet PO Q8H PRN Spasms Diphenhydramine HCl 25 mg 06/08/25 10:51 Diphenhydramine Hcl Inj 50 Mg/Ml Vial IV PUSH Q6H PRN Itching Famotidine 20 mg 06/08/25 10:51 06/09/25 09:01 Famotidine 20 Mg Tablet PO 20 mg Q12HR ROSEANNA Administration Fluticasone Propionate 1 spray 06/08/25 12:00 06/08/25 20:23 Fluticasone Propionate 0.05% Na Spr 16 Gm Btl (*Bkc) NASAL Not Given Q12HR ROSEANNA Furosemide 40 mg 06/08/25 12:00 06/09/25 09:01 Furosemide 40 Mg Tablet BY MOUTH 40 mg DAILY ROSEANNA Administration Gabapentin 900 mg 06/08/25 13:00 06/09/25 09:01 Gabapentin 300 Mg Capsule BY MOUTH 900 mg TID ROSEANNA Administration Hydromorphone HCl 1 mg 06/08/25 10:51 Hydromorphone Hcl Inj (*Crx) 1 Mg/Ml Syr IV PUSH Q2H PRN Breakthrough Pain Rated 7-10 or NPO Hydromorphone HCl 0.5 mg 06/08/25 10:51 Hydromorphone Hcl Inj (*Crx) 1 Mg/Ml Syr IV PUSH Q2H PRN Breakthrough Pain Rated 4-6 or NPO Ibuprofen 800 mg in 200 mls @ 400 mls/hr 06/08/25 10:51 Caldolor 800 Mg/200 Ml IVPB Q6H PRN Breakthrough Pain Rated 1-3 or NPO Levothyroxine Sodium 75 mcg 06/09/25 06:30 06/09/25 05:33 Levothyroxine Sodium 75 Mcg Tablet BY MOUTH 75 mcg DAILY@0630 ROSEANNA Administration Metformin HCl 1,000 mg 06/08/25 17:00 06/09/25 09:02 Metformin Hcl 500 Mg Tablet BY MOUTH 1,000 mg BIDWM ROSEANNA Administration Naloxone HCl 0.1 mg 06/08/25 10:51 Naloxone Hcl 0.4 Mg/Ml Vial IV PUSH Q2M PRN Opiate Reversal Ondansetron HCl 4 mg 06/08/25 10:51 06/08/25 21:51 Ondansetron Inj 4 Mg/2 Ml Vial IV PUSH 4 mg Q4H PRN Administration Nausea And Vomiting Oxycodone/Acetaminophen 1 tablet 06/08/25 10:51 Oxycodone/Acetaminophen (*Crx) 5-325 Mg Tablet PO Q4H PRN Pain Rated 4-6 Oxycodone/Acetaminophen 1 tab 06/08/25 10:51 06/09/25 09:02 Oxycodone/Acetaminophen (*Crx) 10-325 Mg Tablet PO 1 tab Q6H PRN Administration Pain Rated 7-10 Polyethylene Glycol 17 gm 06/08/25 10:51 06/09/25 09:01 Polyethylene Glycol 3350 17 Gm Powd.Pack PO 17 gm QAM ROSEANNA Administration Senna/Docusate Sodium 2 tab 06/08/25 10:51 06/09/25 09:01 Senna/Docusate Sodium Tablet PO 2 tab BID ROSEANNA Administration Simvastatin 20 mg 06/09/25 09:00 06/09/25 09:02 Simvastatin 20 Mg Tablet BY MOUTH 20 mg DAILY ROSEANNA Administration Radiology Results: ITS Impressions Knee X-Ray 06/08/25 09:50 IMPRESSION: 1. Right total knee arthroplasty, negative for postoperative purposes. Labs Labs: Laboratory Results - last 24 hr 06/08/25 06/09/25 06/09/25 09:42 04:59 05:00 WBC 11.6 H RBC 2.76 L Hgb 8.9 L D Hct 28.7 L MCV 104.0 H MCH 32.2 MCHC 31.0 L RDW 14.8 H Plt Count 184 MPV 10.2 Immature Gran % (Auto) 0.5 Neut % (Auto) 81.3 H Lymph % (Auto) 6.7 L Person % (Auto) 11.1 H Eos % (Auto) 0.1 Baso % (Auto) 0.3 Lymph # (Auto) 0.77 L Person # (Auto) 1.3 H Eos # (Auto) 0.0 Baso # (Auto) 0.0 Abs Immat Gran (auto) 0.06 H Absolute Neuts (auto) 9.4 H Absolute Nucleated RBC 0.000 Nucleated RBC % 0.0 Sodium 135 L Potassium 4.5 Chloride 101 Carbon Dioxide 26 Anion Gap 8 BUN 26 H Creatinine 1.11 H Estim Creat Clear Calc 38 Estimated GFR 48 L Glucose 159 H POC Capillary Glucose 204 H Calcium 7.9 L 06/09/25 07:44 WBC RBC Hgb Hct MCV MCH MCHC RDW Plt Count MPV Immature Gran % (Auto) Neut % (Auto) Lymph % (Auto) Person % (Auto) Eos % (Auto) Baso % (Auto) Lymph # (Auto) Person # (Auto) Eos # (Auto) Baso # (Auto) Abs Immat Gran (auto) Absolute Neuts (auto) Absolute Nucleated RBC Nucleated RBC % Sodium Potassium Chloride Carbon Dioxide Anion Gap BUN Creatinine Estim Creat Clear Calc Estimated GFR Glucose POC Capillary Glucose 186 H Calcium Quality VTE Prophylaxis VTE prophylaxis: pharmacologic ordered
[2025-06-09] MEDS: ONDANSETRON INJ 4 MG/2 ML VIAL IV PUSH (09:41)
== END 2025-06-09 13:05 | disposition home health service (06) ==
LOC: ANHSURGERY 06:07 → ANH3MEDSUR 10:53
PROVIDERS: PCP Nurse Practitioner; Visit Provider Orthopaedic Surgery
PROC: (CPT 27447; principal; 2025-06-08 07:30)
DX: M17.11 Unilateral primary osteoarthritis, right knee (principal); G89.18 Other acute postprocedural pain; E03.9 Hypothyroidism, unspecified; E78.5 Hyperlipidemia, unspecified; E11.42 Type 2 diabetes mellitus with diabetic polyneuropathy; E11.22 Type 2 diabetes mellitus with diabetic chronic kidney disease; N18.9 Chronic kidney disease, unspecified; K21.9 Gastro-esophageal reflux disease without esophagitis; F40.240 Claustrophobia; G47.00 Insomnia, unspecified; I34.81 Nonrheumatic mitral (valve) annulus calcification; D86.9 Sarcoidosis, unspecified; E66.9 Obesity, unspecified; Z68.29 Body mass index [BMI] 29.0-29.9, adult; Z79.84 Long term (current) use of oral hypoglycemic drugs; Z79.1 Long term (current) use of non-steroidal anti-inflammatories (NSAID); Z98.890 Other specified postprocedural states; Z98.1 Arthrodesis status; Z86.0100 Personal history of colon polyps, unspecified; Z87.891 Personal history of nicotine dependence; Z85.42 Personal history of malignant neoplasm of other parts of uterus; Z82.49 Family history of ischemic heart disease and other diseases of the circulatory system
CPT/HCPCS: 64447; 27447; 36415; 73560; 80048; 82948; 85025; 86850; 86900; 86901; 97110; 97116; 97161; 97165; 97530; 97535; J0690; A9270; C1713; C1776; J0166; J1100; J1885; J2250; J2270; J2405; J2704; J2795; J3010; J3373; J7030; J7120